=== PATIENT | male | born 1970 | race Caucasian/White ===

== ENCOUNTER 2017-06-18 17:05 | Emergency (ER) | payer OTHER ==
[2017-06-18 17:08] VITALS: TEMP 36.4
[2017-06-18] MEDS ORDERED: IBUPROFEN 600 MG TAB PO STA (17:16)
[2017-06-18] MEDS ORDERED: ACETAMINOPHEN 500 MG TAB PO STA (17:16)
[2017-06-18] MEDS ORDERED: LISI-789 PO (17:34)
[2017-06-18] MEDS ORDERED: CHOL20007 PO (17:34)
[2017-06-18] MEDS ORDERED: BRIM0.2S OPL (17:34)
[2017-06-18] MEDS ORDERED: TIMO0.5S2 OPR (17:34)
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
[2017-06-18 18:52] VITALS: BP 134/92; PULSE 67; O2SAT 96
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
== END 2017-06-18 18:53 | disposition home or self-care (01) ==
LOC: C.EDB 17:07 → C.EDD 18:53
DX: S69.91XA Unspecified injury of right wrist, hand and finger(s), initial encounter (principal); V43.62XA Car passenger injured in collision with other type car in traffic accident, initial encounter; F79 Unspecified intellectual disabilities; Z79.899 Other long term (current) drug therapy

== ENCOUNTER 2021-10-28 23:22 | Observation (INO) ==
[2021-10-28] MEDS ORDERED: cefTRIAXone SODIUM 1,000 MG/50 ML BAG IV STA (23:31)
[2021-10-28] MEDS ORDERED: PIPERACILL/TAZOBAC CONSULT ACTIVE PRN (23:47)
[2021-10-28] MEDS ORDERED: PIPERACILLIN/TAZOBACTAM 4.5 GM/120 ML BAG IV ONE (23:47)
--- NOTE | 2021-10-28 23:47 | Emergency Department Note ---
Impression & Plan Gram-negative bacteremia ED Provider Note NAME: MIGUEL SALINAS AGE: 51 SEX: M : 1970 ARRIVES VIA: Walk-In INFORMANT: Patient, the patient's sister ED PROVIDER(S): Cabrera Vasquez DO CHIEF COMPLAINT: Positive blood culture HPI: The patient is a 51-year-old male who presented to the emergency department for an evaluation. The patient was seen in our facility yesterday. He had what was thought to be a syncopal episode. When he presented to the emergency department last evening his blood pressure was low. He had a work-up for sepsis. He was found to have an elevated lactic acid. He was treated with IV fluids in the emergency department. He was given a dose of IV antibiotics. On reevaluation his condition was significantly improved and he was felt to be stable for discharge to home. The patient had a blood culture returned today that had gram-negative growth. The charge nurse called the patient at home. We spoke to his sister and instructed them to come back to the emergency department for further evaluation. His sister does give most of the history as the patient has a history of developmental delay. The patient has been eating and drinking normally today. He has had no fever. He has had no syncope or low blood pressure. They did hold his blood pressure medication today at our request last evening. According to his sister he has had routine colonoscopies. He has no history of colon mass. He has had no dysuria or frequency. He denies having any back pain. ROS: See above HPI for pertinent positives & negatives. A total of 10 systems reviewed and were otherwise negative. PAST MEDICAL HISTORY: See Below PAST SURGICAL HISTORY: See Below FAMILY HISTORY: See Below SOCIAL HISTORY: See Below HOME MEDICATIONS: See Below ALLERGIES: See Below VITALS: See Below PHYSICAL EXAMINATION: GENERAL: The patient is awake and alert. He is looking around the room and appears to be comfortable. EYES: The conjunctivae are clear. The pupils are round and reactive. EARS, NOSE, MOUTH AND THROAT: The nose is without any evidence of any deformity. Mucous membranes are dry. NECK: The neck is nontender and supple. RESPIRATORY: Normal respiratory effort is noted there is no evidence of wheezing rhonchi or rales CARDIOVASCULAR: Regular rate and rhythm noted there no murmurs rubs or gallops normal S1 normal S2. GASTROINTESTINAL: The abdomen is soft and mildly distended. There is no tenderness guarding rigidity. MUSCULOSKELETAL/EXTREMITIES: There is no evidence of gross deformity full range of motion is noted in the hips and shoulders. SKIN: There is no obvious evidence of any rash. There are no petechiae, pallor or cyanosis noted. NEUROLOGIC: Patient is awake and recognizes his family member. Strength is symmetric. MEDICAL DECISION MAKING: The patient is a 51-year-old male who presented to emergency department for an evaluation. The patient was in our facility yesterday. At that time he was hypotensive but was treated with IV fluids. He did look much better on reevaluation and was able to be discharged home. The patient returns emergency department this evening after he received a phone call from the charge nurse because of a positive blood culture for gram-negative bacteria. The patient was treated with IV antibiotics in emergency department this evening. He does appear to look quite well. He was not febrile or hypotensive. Further laboratory and radiographic studies were obtained to try to determine the source of the gram-negative bacteremia. The case was discussed with the on-call [facility]ist. They have agreed to evaluate the patient in the emergency department for further management and disposition. Triage Nursing notes reviewed. Prior medical records reviewed Vital Signs: reviewed and remarkable for no significant abnormalities Differential diagnosis: Sepsis, UTI, pneumonia, metabolic, electrolyte abnormalities, cardiac sources, intracerebral event, toxicologic, neurologic, as well as other pathologies. ER treatment provided: See below Diagnostics interpreted by me: ECG: EKG was obtained in the emergency department. My interpretation is normal sinus rhythm at 83 bpm. There is no ectopy. There is no acute ST segment abnormalities noted. This was compared to a tracing from October 27, 2021. No changes were noted. Cardiac Monitoring: An order was placed for continuous cardiac monitoring. The monitor shows a rate of 71 bpm with sinus rhythm. Laboratory studies: As stated above and show below. Imaging studies: See below Consultation(s): The case was discussed with Dr. Barker who is on-call for the [facility]ist. Past Med/Surg History Medical History Cognitive impairment Constipation Depression Fatty liver Frequency of urination Glaucoma Hearing loss Hyperlipidemia Hypertension Lichen simplex chronicus Moderate mental subnormality Prediabetes Proteinuria Speech impediment Vitamin D deficiency Surgical History History of tooth extraction all but 4 teeth removed Hx of colonoscopy (~2018) Family History Father Prostate cancer Diabetes Hypertension Cancer Heart disease Mother Breast cancer Heart disease Brother Colorectal cancer Other No family history of adverse response to anesthesia Denies family history of Ovarian cancer Myocardial infarction Social History Smoking Status: Never smoker Second Hand Exposure: No; Hx Alcohol Use: No Hx Substance Use: No Preferred Language: Luxembourgish Communication Ability: Impaired Visual Impairment: Limited Hearing Ability: Normal Cerner Analyst Required: No Beliefs That Will Affect Care: None marital status: Single Current Living Situation: Other Current Living Situation Comment: Lives with caregiver current occupational status: employed 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 How many Children do You have: 0 Feels Safe at Home: Yes Childhood Exposure to Second-Hand Smoke: No caffeine: No during the past year weight has: remained stable Dental Care, Regularly: Yes Physical Activity Frequency: 1-2 Times per Week Seatbelt Use: always Sunscreen Use: Yes Assistive Devices: Glasses Allergies Allergies Allergy/AdvReac Type Severity Reaction Status Date / Time atorvastatin Allergy Mild itching Verified 10/28/21 23:52 Home Meds Home Medications Medication Instructions Recorded Confirmed timolol maleate 0.5 % eye drops 1 drp OP BID ml 07/10/19 10/28/21 brimonidine 0.2 %-timolol 0.5 % 1 drp OPL BID 10/27/21 10/28/21 eye drops (Combigan) Previous Rx's Medication Instructions Recorded psyllium husk (with sugar) 3.4 2 tbsp PO QAM #1368 g 12/20/20 gram/12 gram oral powder (Metamucil (with sugar)) docusate sodium 100 mg capsule 100 mg PO BID #60 cap 06/25/21 (Colace) cholecalciferol (vitamin D3) 50 2,000 unit PO QAM #90 cap 10/26/21 mcg (2,000 unit) capsule lisinopril 5 mg tablet 5 mg PO QAM #90 tab 10/26/21 omega-3 fatty acids 1,000 mg 1,000 mg PO QAM #90 cap 10/26/21 capsule pravastatin 40 mg tablet 60 mg PO HS #90 tab 10/26/21 quetiapine 50 mg tablet 50 mg PO HS #90 tab 10/26/21 sertraline 50 mg tablet (Zoloft) 50 mg PO DAILY #90 tab 10/26/21 tamsulosin 0.4 mg capsule (Flomax) 0.4 mg PO DAILY #90 cap 10/26/21 Results & Data (ED) Vital Signs Vital Signs - 24 hr 10/28/21 23:27 10/28/21 23:47 10/29/21 00:44 Temperature 36.8 C Temperature Source Temporal Artery Scan Pulse Rate 84 71 Pulse Rate [Left] Pulse Rhythm Regular Pulse Rhythm [Left] Pulse Strength [Left] Respiratory Rate 20 16 Respiratory Effort / Characteristics Non-Labored Blood Pressure 133/83 Blood Pressure Mean 99 Pulse Oximetry 98 100 Oxygen Delivery Method Room Air Room Air Sepsis Recent Fever Within 48 Hours No Sepsis New/Unexplained Change in Mental Status N/A Sepsis Action Taken by Nursing No Action Required 10/29/21 00:45 10/29/21 00:46 Temperature Temperature Source Pulse Rate Pulse Rate [Left] 71 71 Pulse Rhythm Pulse Rhythm [Left] Regular Regular Pulse Strength [Left] Normal Respiratory Rate 16 Respiratory Effort / Characteristics Non-Labored Blood Pressure Blood Pressure Mean Pulse Oximetry 100 Oxygen Delivery Method Room Air Sepsis Recent Fever Within 48 Hours Sepsis New/Unexplained Change in Mental Status Sepsis Action Taken by Group Home Medications Current Medication List: was personally reviewed by me Laboratory Data Attestation: I reviewed the patient's lab results. Result diagrams: 10/28/21 23:45 10/28/21 23:45 Lab Results 10/28/21 10/28/21 10/28/21 Range/Units 23:45 23:45 23:45 WBC 8.03 (4.8-10.8) K/uL RBC 4.46 L (4.7-6.1) M/uL Hgb 13.1 L (14.0-18.0) g/dL Hct 39.4 L (42-52) % MCV 88.3 (80-100) fL MCH 29.4 (25-34) pg MCHC 33.2 (32-36) g/dL RDW Std Deviation 50.0 H (36.4-46.3) fL RDW Coeff of Varun 15.4 H (11.5-14.5) % Plt Count 208 (130-400) K/uL MPV 10.0 (7.4-10.4) fL Immature Gran % (Auto) 0.6 % Neut % (Auto) 77.6 % Lymph % (Auto) 12.7 % Mckenzie % (Auto) 7.0 % Eos % (Auto) 1.7 % Baso % (Auto) 0.4 % Neut # (Auto) 6.23 (1.4-6.5) K/uL Lymph # (Auto) 1.02 L (1.2-3.4) K/uL Mckenzie # (Auto) 0.56 (0.11-0.59) K/uL Eos # (Auto) 0.14 (0-0.5) K/uL Baso # (Auto) 0.03 (0-0.2) K/uL Immature Gran # (Auto) 0.05 H (0.00-0.02) K/uL PT 9.8 (9.0-12.0) Seconds INR 1.0 (0.9-1.1) APTT 25.7 (21.0-31.0) Seconds PTT Ratio 1.0 Sodium 136 (136-145) mmol/L Potassium 3.8 (3.5-5.1) mmol/L Chloride 102 (98-107) mmol/L Carbon Dioxide 27 (21-32) mmol/L Anion Gap 7 (3-11) BUN 11 (6-23) mg/dl Creatinine 0.77 (0.6-1.4) mg/dl Est Cr Clr Drug Dosing 89.7 ml/min Est GFR ( Amer) 120.1 ml/min Est GFR (Non-Af Amer) 103.6 ml/min BUN/Creatinine Ratio 14.3 (10-20) Glucose 118 H (70-99(Fasting)) mg/dl Lactate (0.4-2.0) mmol/L Calcium 9.2 (8.5-10.1) mg/dl Magnesium 1.9 (1.7-2.4) mg/dl Total Bilirubin 0.5 (0.2-1.0) mg/dl AST 36 (13-39) U/L ALT 29 (7-52) U/L Alkaline Phosphatase 87 (34-104) U/L Troponin I < 0.03 (0-0.04) ng/ml Total Protein 7.2 (6.0-8.3) gm/dl Albumin 4.2 (3.4-5.0) gm/dl Globulin 3.0 (2.5-4.0) gm/dl Albumin/Globulin Ratio 1.4 (0.9-2) Procalcitonin (0-0.5) ng/ml 10/28/21 10/28/21 Range/Units 23:45 23:45 WBC (4.8-10.8) K/uL RBC (4.7-6.1) M/uL Hgb (14.0-18.0) g/dL Hct (42-52) % MCV (80-100) fL MCH (25-34) pg MCHC (32-36) g/dL RDW Std Deviation (36.4-46.3) fL RDW Coeff of Varun (11.5-14.5) % Plt Count (130-400) K/uL MPV (7.4-10.4) fL Immature Gran % (Auto) % Neut % (Auto) % Lymph % (Auto) % Mckenzie % (Auto) % Eos % (Auto) % Baso % (Auto) % Neut # (Auto) (1.4-6.5) K/uL Lymph # (Auto) (1.2-3.4) K/uL Mckenzie # (Auto) (0.11-0.59) K/uL Eos # (Auto) (0-0.5) K/uL Baso # (Auto) (0-0.2) K/uL Immature Gran # (Auto) (0.00-0.02) K/uL PT (9.0-12.0) Seconds INR (0.9-1.1) APTT (21.0-31.0) Seconds PTT Ratio Sodium (136-145) mmol/L Potassium (3.5-5.1) mmol/L Chloride (98-107) mmol/L Carbon Dioxide (21-32) mmol/L Anion Gap (3-11) BUN (6-23) mg/dl Creatinine (0.6-1.4) mg/dl Est Cr Clr Drug Dosing ml/min Est GFR ( Amer) ml/min Est GFR (Non-Af Amer) ml/min BUN/Creatinine Ratio (10-20) Glucose (70-99(Fasting)) mg/dl Lactate 1.0 (0.4-2.0) mmol/L Calcium (8.5-10.1) mg/dl Magnesium (1.7-2.4) mg/dl Total Bilirubin (0.2-1.0) mg/dl AST (13-39) U/L ALT (7-52) U/L Alkaline Phosphatase (34-104) U/L Troponin I (0-0.04) ng/ml Total Protein (6.0-8.3) gm/dl Albumin (3.4-5.0) gm/dl Globulin (2.5-4.0) gm/dl Albumin/Globulin Ratio (0.9-2) Procalcitonin < 0.05 (0-0.5) ng/ml Administered Medications Discontinued Medications Piperacillin Sod/Tazobactam Sod (Zosyn) 4.5 gm in 120 mls @ 240 mls/hr IV NOW ONE Stop: 10/29/21 00:16 Last Admin: 10/29/21 00:53 Dose: 240 mls/hr Documented by: [id number] Ioversol (Optiray 320 100ml) 95 ml IV ONCE ONE Stop: 10/29/21 00:22 Last Admin: 10/29/21 00:21 Dose: 95 ml Documented by: [id number] Imaging Data Attestation: I personally reviewed and interpreted this imaging study as follows: My Impression: 1 view chest x-ray was obtained in the emergency department. My interpretation is poor expiratory effort. Bibasilar fullness was noted. There is no free air. This was compared to chest x-ray from October 27, 2021. The bibasilar changes are new compared to the previous chest x-ray. Discharge Plan Visit Data Chief Complaint: Abnormal Labs/Diagnostic Testing Stated Complaint: TOLD TO COME BACK, BACTERIA IN BLOOD ED Provider: Cabrera Vasquez Discharge Problem: Gram-negative bacteremia Patient Disposition: Being Evaluated by Hospitalist Forms Stand Alone Forms: My [facility] Prescriptions Prescriptions: No Action docusate sodium [Colace] 100 mg capsule 100 mg PO BID Qty: 60 RF: 5 cholecalciferol (vitamin D3) 50 mcg (2,000 unit) capsule 2,000 unit PO QAM Qty: 90 RF: 1 lisinopril 5 mg tablet 5 mg PO QAM Qty: 90 RF: 1 omega-3 fatty acids 1,000 mg capsule 1,000 mg PO QAM Qty: 90 RF: 1 pravastatin 40 mg tablet 60 mg PO HS Qty: 90 RF: 1 quetiapine 50 mg tablet 50 mg PO HS Qty: 90 RF: 1 sertraline [Zoloft] 50 mg tablet 50 mg PO DAILY Qty: 90 RF: 1 tamsulosin [Flomax] 0.4 mg capsule 0.4 mg PO DAILY Qty: 90 RF: 1 Metamucil (with sugar) 3.4 gram/12 gram powder 2 tbsp PO QAM Qty: 1368 RF: 5 timolol maleate 0.5 % drops 1 drp OP BID RF: 0 Combigan 0.2-0.5 % drops 1 drp OPL BID RF: 0 Referrals Referrals: Ronna Zendejas DO [Primary Care Provider] -
[2021-10-28 23:54] LABS: Basophils # (auto) 0.03 K/uL (0-0.2); Basophils % (auto) 0.4 %; Eosinophils # (auto) 0.14 K/uL (0-0.5); Eosinophils % (auto) 1.7 %; Hematocrit (blood only) 39.4 % (42-52); Hemoglobin 13.1 g/dL (14.0-18.0); Immature Granulocytes # (auto) 0.05 K/uL (0.00-0.02); Immature Granulocytes % (auto) 0.6 %; Lymphocytes # (auto) 1.02 K/uL (1.2-3.4); Lymphocytes % (auto) 12.7 %; Mean Corpuscular Hemoglobin 29.4 pg (25-34); Mean Corpuscular Hgb Conc 33.2 g/dL (32-36); Mean Corpuscular Volume 88.3 fL (80-100); Monocytes # (auto) 0.56 K/uL (0.11-0.59); Neutrophils # (auto) 6.23 K/uL (1.4-6.5); Neutrophils % (auto) 77.6 %; Platelet Count 208 K/uL (130-400); RDW Coefficient of Variation 15.4 % (11.5-14.5); Red Blood Count 4.46 M/uL (4.7-6.1); White Blood Count 8.03 K/uL (4.8-10.8)
[2021-10-29 00:05] LABS: Partial Thromboplastin Time 25.7 Seconds (21.0-31.0); Prothrombin Time 9.8 Seconds (9.0-12.0)
[2021-10-29 00:16] LABS: Alanine Aminotransferase 29 U/L (7-52); Albumin Globulin Ratio 1.4 (0.9-2); Albumin Level 4.2 gm/dl (3.4-5.0); Alkaline Phosphatase 87 U/L (34-104); Anion Gap 7 (3-11); Aspartate Aminotransferase 36 U/L (13-39); BUN Creatinine Ratio 14.3 (10-20); Bilirubin,Total 0.5 mg/dl (0.2-1.0); Blood Urea Nitrogen 11 mg/dl (6-23); Calcium 9.2 mg/dl (8.5-10.1); Carbon Dioxide 27 mmol/L (21-32); Chloride 102 mmol/L (98-107); Creatinine Clr Calc Pharmacy 89.7 ml/min; Est GFR (African American) 120.1 ml/min; Est GFR (Non-African American) 103.6 ml/min; Glucose 118 mg/dl (70-99(Fasting)); Magnesium 1.9 mg/dl (1.7-2.4); Potassium 3.8 mmol/L (3.5-5.1); Sodium 136 mmol/L (136-145); Total Protein 7.2 gm/dl (6.0-8.3)
[2021-10-29] MEDS ORDERED: OPTIRAY 320 100ml IV ONE (00:21)
[2021-10-29 00:33] LABS: Troponin I < 0.03 ng/ml (0-0.04)
--- NOTE | 2021-10-29 02:28 | History & Physical Report ---
Date of Service October 29, 2021 Assessment & Plan (1) Gram-negative bacteremia: Plan: 51yo male seen in the ER yesterday for syncope, acute hypotension which resolved with 2L IVF returns due to positive blood cultures (10/27/21 - 1 cultures positive for GNR in aerobic bottle). Patient is afebrile, HD stable, NAD. No complaints No acute findings to suggest infection on physical exam CT Abdomen read is pending -Admit to medical -Repeat cultures sent -Zosyn 3.375gm IV q 8 for now, transition to oral antibiotics pending speciation/sensitivity -UA ordered -Tylenol and Zofran PRN (2) Depression: Plan: Chronic -Continue Sertraline -Continue Seroquel qHS (3) Cognitive impairment: Plan: Noted (4) Hypertension: Plan: Patient with hypotension yesterday which resolved with IVF -Hold Lisinopril -Continue to monitor (5) Hyperlipidemia: Plan: Chronic -Continue Pravastatin 60mg po qHS (6) Speech impediment: Plan: Noted. Patient is able to answer questions Plan: F/E/N - Heplock. Electrolytes WNL. Regular diet as tolerated - easy to chew. Continue home bowel regimen Ppx - Low risk for DVT Code - Full Dispo - Admit to medical History of Present Illness Chief Complaint: Positive blood cultures Primary Care Provider: DO Cole Allen is a 51yo male with cognitive impairment/developmental delay who was seen in the ER last night after a syncopal episode. Patient with no focal complaints at the time. He states he has been eating well.He was found to be hypotensive as low as 71/51. His lactic acid level was initially high at 3.5 (after repeated attempts at blood draw - patient is a very difficult stick). He was administered 2L NSS with normalization of his blood pressure and Lactic acid to 1.3. He also received Zosyn. Patient was discharged home with instruction to hold his home Lisinopril and followup with his PCP. Blood cultures drawn yesterday resulted POSITIVE - One of two cultures drawn from 10/27/21 at 22:43 positive for Gram Negative Bacilli in Aerobic bottle. Patient was contacted by the ER and returned with his sister this evening. He has no complaints. States he is feeling well. He denies chest pain, shortness of breath, abdominal pain, nausea, vomiting, diarrhea or constipation. ER Course: Labs and images as below Zosyn 4.5gm Allergies Allergy/AdvReac Type Severity Reaction Status Date / Time atorvastatin Allergy Mild itching Verified 10/28/21 23:52 Home Medications Medication Instructions Recorded Confirmed Type timolol maleate 0.5 % eye drops 1 drp OP BID ml 07/10/19 10/28/21 History psyllium husk (with sugar) 3.4 2 tbsp PO QAM #1368 g 12/20/20 10/28/21 Rx gram/12 gram oral powder (Metamucil (with sugar)) docusate sodium 100 mg capsule 100 mg PO BID #60 cap 06/25/21 10/28/21 Rx (Colace) cholecalciferol (vitamin D3) 50 2,000 unit PO QAM #90 cap 10/26/21 10/28/21 Rx mcg (2,000 unit) capsule lisinopril 5 mg tablet 5 mg PO QAM #90 tab 10/26/21 10/28/21 Rx omega-3 fatty acids 1,000 mg 1,000 mg PO QAM #90 cap 10/26/21 10/28/21 Rx capsule pravastatin 40 mg tablet 60 mg PO HS #90 tab 10/26/21 10/28/21 Rx quetiapine 50 mg tablet 50 mg PO HS #90 tab 10/26/21 10/28/21 Rx sertraline 50 mg tablet (Zoloft) 50 mg PO DAILY #90 tab 10/26/21 10/28/21 Rx tamsulosin 0.4 mg capsule (Flomax) 0.4 mg PO DAILY #90 cap 10/26/21 10/28/21 Rx brimonidine 0.2 %-timolol 0.5 % 1 drp OPL BID 10/27/21 10/28/21 History eye drops (Combigan) Past Med/Surg History Medical History Cognitive impairment Constipation Depression Fatty liver Frequency of urination Glaucoma Hearing loss Hyperlipidemia Hypertension Lichen simplex chronicus Moderate mental subnormality Prediabetes Proteinuria Speech impediment Vitamin D deficiency Surgical History History of tooth extraction all but 4 teeth removed Hx of colonoscopy (~2018) Family History Father Prostate cancer Diabetes Hypertension Cancer Heart disease Mother Breast cancer Heart disease Brother Colorectal cancer Other No family history of adverse response to anesthesia Denies family history of Ovarian cancer Myocardial infarction Social History Smoking Status: Never smoker Second Hand Exposure: No; Hx Alcohol Use: No Hx Substance Use: No Preferred Language: Ukrainian Communication Ability: Impaired Visual Impairment: Limited Hearing Ability: Normal 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 Beliefs That Will Affect Care: None marital status: Single Current Living Situation: Other Current Living Situation Comment: Lives with caregiver current occupational status: employed 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 How many Children do You have: 0 Feels Safe at Home: Yes Childhood Exposure to Second-Hand Smoke: No caffeine: No during the past year weight has: remained stable Dental Care, Regularly: Yes Physical Activity Frequency: 1-2 Times per Week Seatbelt Use: always Sunscreen Use: Yes Assistive Devices: Glasses Review of Systems Review of Systems: All systems reviewed & are unremarkable except as noted in HPI & below Physical Exam Physical Exam: General: patient resting comfortably, NAD, non-toxic in appearance, AA&O x 4 Skin: warm, dry, intact, no rashes or lesions HEENT: NC/AT, PERRL, EOMI, anicteric sclera, conjunctiva without injection, external ear normal to inspection and nontender, nares patent, moist mucus membranes, edentulous, no oropharyngeal lesions, neck supple, trachea midline, no LAD, no thyromegaly, no JVD Heart: +S1/S2, regular, no m/r/g Lungs: equal air entry bilaterally, no rales/rhonchi/wheezes Abd: +BS, soft, NT/ND, no masses/organomegaly/ascites, no RUQ tenderness, negative Tello's sign, no suprapubic tenderness, no CVA tenderness Ext: warm, 2+ pulses in UE/LE bilaterally, no clubbing/cyanosis or edema Neuro: nonfocal, patient AA&O x 4, speech intact, no facial droop, moving all extremities on command with equal strength 5/5 Results & Data Results & Data ([facility]) Vital Signs (Past 12 Hours) Vital Signs Temp Pulse Pulse Resp BP BP Pulse Ox 10/29/21 01:49 81 16 119/81 97 10/29/21 01:22 67 16 97 10/29/21 00:46 71 10/29/21 00:45 71 16 100 10/29/21 00:44 71 16 100 10/28/21 23:27 36.8 C 84 20 133/83 98 Laboratory Results Laboratory Results WBC 8.03 K/uL (4.8-10.8) 10/28/21 23:45 RBC 4.46 M/uL (4.7-6.1) L 10/28/21 23:45 Hgb 13.1 g/dL (14.0-18.0) L 10/28/21 23:45 Hct 39.4 % (42-52) L 10/28/21 23:45 MCV 88.3 fL (80-100) 10/28/21 23:45 MCH 29.4 pg (25-34) 10/28/21 23:45 MCHC 33.2 g/dL (32-36) 10/28/21 23:45 RDW Std Deviation 50.0 fL (36.4-46.3) H 10/28/21 23:45 RDW Coeff of Varun 15.4 % (11.5-14.5) H 10/28/21 23:45 Plt Count 208 K/uL (130-400) 10/28/21 23:45 MPV 10.0 fL (7.4-10.4) 10/28/21 23:45 Immature Gran % (Auto) 0.6 % 10/28/21 23:45 Neut % (Auto) 77.6 % 10/28/21 23:45 Lymph % (Auto) 12.7 % 10/28/21 23:45 [place] % (Auto) 7.0 % 10/28/21 23:45 Eos % (Auto) 1.7 % 10/28/21 23:45 Baso % (Auto) 0.4 % 10/28/21 23:45 Neut # (Auto) 6.23 K/uL (1.4-6.5) 10/28/21 23:45 Lymph # (Auto) 1.02 K/uL (1.2-3.4) L 10/28/21 23:45 [place] # (Auto) 0.56 K/uL (0.11-0.59) 10/28/21 23:45 Eos # (Auto) 0.14 K/uL (0-0.5) 10/28/21 23:45 Baso # (Auto) 0.03 K/uL (0-0.2) 10/28/21 23:45 Immature Gran # (Auto) 0.05 K/uL (0.00-0.02) H 10/28/21 23:45 PT 9.8 Seconds (9.0-12.0) 10/28/21 23:45 INR 1.0 (0.9-1.1) 10/28/21 23:45 APTT 25.7 Seconds (21.0-31.0) 10/28/21 23:45 PTT Ratio 1.0 10/28/21 23:45 Sodium 136 mmol/L (136-145) 10/28/21 23:45 Potassium 3.8 mmol/L (3.5-5.1) 10/28/21 23:45 Chloride 102 mmol/L (98-107) 10/28/21 23:45 Carbon Dioxide 27 mmol/L (21-32) 10/28/21 23:45 Anion Gap 7 (3-11) 10/28/21 23:45 BUN 11 mg/dl (6-23) 10/28/21 23:45 Creatinine 0.77 mg/dl (0.6-1.4) 10/28/21 23:45 Est Cr Clr Drug Dosing 89.7 ml/min 10/28/21 23:45 Est GFR ( Amer) 120.1 ml/min 10/28/21 23:45 Est GFR (Non-Af Amer) 103.6 ml/min 10/28/21 23:45 BUN/Creatinine Ratio 14.3 (10-20) 10/28/21 23:45 Glucose 118 mg/dl (70-99(Fasting)) H 10/28/21 23:45 Lactate 1.0 mmol/L (0.4-2.0) 10/28/21 23:45 Calcium 9.2 mg/dl (8.5-10.1) 10/28/21 23:45 Magnesium 1.9 mg/dl (1.7-2.4) 01/16/22 23:45 Total Bilirubin 0.5 mg/dl (0.2-1.0) 10/28/21 23:45 AST 36 U/L (13-39) 10/28/21 23:45 ALT 29 U/L (7-52) 10/28/21 23:45 Alkaline Phosphatase 87 U/L (34-104) 10/28/21 23:45 Troponin I < 0.03 ng/ml (0-0.04) 10/28/21 23:45 Total Protein 7.2 gm/dl (6.0-8.3) 10/28/21 23:45 Albumin 4.2 gm/dl (3.4-5.0) 10/28/21 23:45 Globulin 3.0 gm/dl (2.5-4.0) 10/28/21 23:45 Albumin/Globulin Ratio 1.4 (0.9-2) 10/28/21 23:45 Procalcitonin < 0.05 ng/ml (0-0.5) 10/28/21 23:[address] Abdomen and Pelvis - Performed, awaiting read CXR by my interpretation wtih poor inspiratory effort, appears to have some airspace opacities mostly in RLL Code Status & VTE Plan VTE Prophylaxis Plan VTE Prophylaxis will be ordered: No PG Care Time/CCT Total # of Minutes Spent Total Time Spent with Patient: Total time spent is greater than 50% in coordination of care (as documented) at patient's floor/unit and/or counseling patient: Coding Level of Care Code 26846 Initial Inpt Care Lvl 2 Diagnoses Gram-negative bacteremia R78.81 Depression F32.9 Cognitive impairment R41.89 Hypertension I10 Hyperlipidemia E78.5 Speech impediment R47.9
[2021-10-29] MEDS ORDERED: ONDANSETRON INJ 2 MG/ML 2 ML VIAL IV PRN (02:46)
[2021-10-29] MEDS ORDERED: ACETAMINOPHEN 325 MG TAB PO PRN (02:46)
[2021-10-29] MEDS ORDERED: PIPERACILL/TAZOBAC CONSULT ACTIVE PRN (02:46)
--- NOTE | 2021-10-29 07:23 | CT Scan Report ---
ABDOMEN AND PELVIS CT WITH IV CONTRAST CT DOSE: 446.94 mGy.cm HISTORY: Generalized abdominal pain. sepsis TECHNIQUE: Multiaxial CT images of the abdomen and pelvis were performed following the use of intrave nous contrast. A dose lowering technique was utilized adhering to the principles of ALARA. COMPARISON STUDY: Abdomen and pelvis CT 02/20/2021. FINDINGS: Schmorl's node at the super endplate of L1 remains unchanged. Focal indentation at the ante rior cortex of S3 consistent with acute to subacute sacral fracture. This likely accounts for the pre sacral edema which is new from the prior study. Patchy bibasilar airspace opacities within the lungs. This favors a mild viral pneumonia. No pneumoperitoneum. No pneumatosis. The liver, gallbladder, richards creas, spleen, adrenal glands, and right kidney are unremarkable. There are 2 hypodense lesions withi n the left kidney, unchanged. These likely represent cysts. The largest measures 2 cm. No retroperito tierney lymphadenopathy. Normal caliber abdominal aorta. The main portal vein is patent. Mild motion art ifact. Large fat-containing right inguinal hernia. This also contains a portion of the right anterior bladder dome. No definite bladder wall thickening. The prostate gland is normal in size. No bowel wa ll thickening or obstruction. Is not identified with certainty. There are no inflammatory changes within the right lower quadrant. IMPRESSION: 1. Mild presacral edema. There is a focal indentation of the anterior cortex of the S3 vertebral body consistent with an acute to subacute sacral fracture. This likely accounts for the presacral edema. 2. Large right inguinal hernia is again noted. This contains fat and a small portion of the right ant erior bladder. 3. No bowel wall thickening or obstruction. ACT 112: Negative or not required by law. Electronically signed by: Clinton Rai M.D. 10/29/2021 7:22 AM
--- NOTE | 2021-10-29 07:35 | XRay Report ---
XR chest 1V portable CLINICAL HISTORY: SEPSIS TECHNIQUE: Single frontal radiograph of the chest was obtained. Comparison: Comparison is made to chest one view 10/27/2021 FINDINGS: No lines and tubes are seen. The cardiomediastinal silhouette is stable. There is prominence and ceph alization of the vasculature with Lauren B lines seen. Mild bibasilar opacities are increased in prom inence from prior exam. No evidence of pleural effusion or pneumothorax. IMPRESSION: Moderate pulmonary edema. This represents an increase in prior exam. Increased bibasilar opacities ma y reflect atelectasis, pneumonia, and/or aspiration. ACT 112: Negative or not required by law. Electronically signed by: Dong Parker M.D. 10/29/2021 7:34 AM
[2021-10-29] MEDS: COMBIGAN~ORDER AWAITING ACTION SCH ×3 (08:37→23:00)
[2021-10-29] MEDS: PIPERACILLIN/TAZOBACTAM 3.375 GM in DEXTROSE 5% 100 ML IV SCH ×3 (08:38→22:14)
--- NOTE | 2021-10-29 08:49 | Electrocardiogram Report ---
Test Reason : Blood Pressure : / mmHG Vent. Rate : 083 BPM Atrial Rate : 083 BPM P-R Int : 140 ms QRS Dur : 086 ms QT Int : 360 ms P-R-T Axes : 042 015 030 degrees QTc Int : 423 ms Poor data quality, interpretation may be adversely affected Normal sinus rhythm Normal ECG When compared with ECG of 27-OCT-2021 19:51, No significant change was found Confirmed by Mayo Graf ([id number]) on 10/29/2021 8:49:43 AM Referred By: REFERRED SELF Confirmed By:Mayo Graf
[2021-10-29] MEDS ORDERED: Flu Vaccine (Fluarix) 0.5mL SYR (Standard Dose) IM ONE (09:00)
[2021-10-29] MEDS: SERTRALINE HCL 50 MG TABLET PO SCH (09:10)
[2021-10-29] MEDS: TAMSULOSIN HCL 0.4 MG CAP PO SCH (09:10)
[2021-10-29] MEDS: DOCUSATE SODIUM 100 MG CAP PO SCH ×2 (09:10→20:35)
[2021-10-29] MEDS: TIMOLOL MALEATE 0.5% OP SOLN 5 ML BTL OP SCH ×2 (09:10→20:36)
--- NOTE | 2021-10-29 12:14 | Hospitalist Progress Note ---
Date of Service October 29, 2021 Assessment & Plan (1) Gram-negative bacteremia: Plan: Unclear source of infection and only 1/2 bottles positive for GNB, awaiting full results. At baseline No acute findings to suggest infection on physical exam CT Abdomen/pelvis with focal indentation of the anterior cortex of the S3 vertebral body consistent with an acute to subacute sacral fracture - very low suspicion of vertebral infection given no overlying source for infection. -Repeat cultures sent -Zosyn 3.375gm IV q 8 for now, transition to oral antibiotics pending speciation/sensitivity, will consider ID consult for duration given unknown source -Repeat UA unremarkable -Tylenol and Zofran PRN (2) Depression: Plan: Chronic -Continue Sertraline -Continue Seroquel qHS (3) Cognitive impairment: Plan: Noted (4) Hypertension: Plan: Patient with hypotension yesterday which resolved with IVF -Continue to hold Lisinopril -Continue to monitor (5) Hyperlipidemia: Plan: Chronic -Continue Pravastatin 60mg po qHS (6) Speech impediment: Plan: Noted. Patient is able to answer questions Plan: F/E/N - Heplock. Electrolytes WNL. Regular diet as tolerated - easy to chew. Continue home bowel regimen Ppx - Low risk for DVT Code - Full Dispo - Continue on med/surg Admission and Anticipated Discharge Date Admission Date: October 29, 2021 Subjective No current concerns or question from patient or his caregiver at bedside. Patient at his baseline. No suspected uncontrolled source of infection. GNB in 1/2 bottles, awaiting full identification. ESR 33. Review of Systems Review of Systems: All systems reviewed & are unremarkable except as noted in HPI & below Physical Exam Constitutional: no acute distress Eyes: + anicteric sclerae; normal pupil size ENMT: external ear and nose normal, oropharynx normal Respiratory: normal respiratory effort, lungs clear to auscultation Cardiovascular: RRR, no murmur, no edema Gastrointestinal (Abdomen): Percussion/Palpation: abdomen soft; abdomen nontender Musculoskeletal: no cyanosis or clubbing, extremities motor strength 5/5 Skin: Trauma: + abrasion (mild on sacrum, no ulceration of cellulitis) Neurologic: moves all extremities and awake; not confused Psychiatric: Orientation: alert Results & Data Results & Data ([facility]) Vital Signs (Past 12 Hours) Vital Signs Temp Pulse Pulse Resp BP BP Pulse Ox 10/29/21 08:35 36.4 C L 71 18 124/53 L 92 10/29/21 04:02 64 18 118/91 93 10/29/21 04:00 64 21 94 10/29/21 02:43 70 16 96 10/29/21 02:00 87 26 H 98 10/29/21 01:49 81 16 119/81 97 10/29/21 01:48 82 26 H 119/91 98 10/29/21 01:22 67 16 97 10/29/21 00:46 71 10/29/21 00:45 71 16 100 10/29/21 00:44 71 16 100 10/29/21 00:20 71 24 96 PG Care Time/CCT Total # of Minutes Spent Total Time Spent with Patient: Total time spent is greater than 50% in coordination of care (as documented) at patient's floor/unit and/or counseling patient: Coding Level of Care Code None Diagnoses Gram-negative bacteremia R78.81 Depression F32.9 Cognitive impairment R41.89 Hypertension I10 Hyperlipidemia E78.5 Speech impediment R47.9
[2021-10-29 13:23] LABS: Appearance Urine Clear (Clear); Bacteria Urine Automated Negative (Negative); Bilirubin Urine Negative (Negative); Blood Urine 1+ (Negative); Cast Urine Automated 0 /lpf (0-5); Color Urine Yellow; Epithelial Cell Urine Auto 0-5 /lpf (0-5); Glucose Urine UA Negative (Negative); Ketones Urine Negative (Negative); Leukocyte Esterase Urine Negative (Negative); Nitrite Urine Negative (Negative); RBC Urine Automated 0-4 /hpf (0-4); Specific Gravity Urine 1.018 (1.000-1.030); Urobilinogen Urine Negative (Negative); WBC Urine Automated 0 /hpf (0-5); pH Urine 7.5 (4.5-7.5)
[2021-10-29 13:24] LABS: Protein Urine 1+ (Negative)
[2021-10-29] MEDS ORDERED: QUEtiapine FUMARATE 25 MG TABLET PO SCH (21:00)
[2021-10-29] MEDS ORDERED: PRAVASTATIN SOD 20 MG TAB PO SCH (21:00)
[2021-10-30] MEDS: PIPERACILLIN/TAZOBACTAM 3.375 GM in DEXTROSE 5% 100 ML IV SCH ×2 (05:34→14:28)
[2021-10-30] MEDS: COMBIGAN~ORDER AWAITING ACTION SCH ×2 (07:04→14:56)
[2021-10-30 07:10] LABS: Basophils # (auto) 0.02 K/uL (0-0.2); Basophils % (auto) 0.4 %; Eosinophils # (auto) 0.11 K/uL (0-0.5); Hematocrit (blood only) 38.3 % (42-52); Hemoglobin 12.7 g/dL (14.0-18.0); Immature Granulocytes # (auto) 0.04 K/uL (0.00-0.02); Immature Granulocytes % (auto) 0.7 %; Lymphocytes # (auto) 1.24 K/uL (1.2-3.4); Lymphocytes % (auto) 22.1 %; Mean Corpuscular Hemoglobin 29.1 pg (25-34); Mean Corpuscular Hgb Conc 33.2 g/dL (32-36); Mean Corpuscular Volume 87.8 fL (80-100); Mean Platelet Volume 10.1 fL (7.4-10.4); Monocytes # (auto) 0.76 K/uL (0.11-0.59); Monocytes % (auto) 13.5 %; Neutrophils # (auto) 3.45 K/uL (1.4-6.5); Neutrophils % (auto) 61.3 %; Platelet Count 197 K/uL (130-400); RDW Coefficient of Variation 15.3 % (11.5-14.5); RDW Standard Deviation 49.6 fL (36.4-46.3); Red Blood Count 4.36 M/uL (4.7-6.1); White Blood Count 5.62 K/uL (4.8-10.8)
[2021-10-30 07:35] LABS: BUN Creatinine Ratio 13.3 (10-20); Creatinine Clr Calc Pharmacy 92.2 ml/min; Est GFR (African American) 121.4 ml/min; Est GFR (Non-African American) 104.7 ml/min; Potassium 3.5 mmol/L (3.5-5.1)
[2021-10-30] MEDS: SERTRALINE HCL 50 MG TABLET PO SCH (08:12)
[2021-10-30] MEDS: TIMOLOL MALEATE 0.5% OP SOLN 5 ML BTL OP SCH (08:12)
[2021-10-30] MEDS: TAMSULOSIN HCL 0.4 MG CAP PO SCH (08:12)
[2021-10-30] MEDS: DOCUSATE SODIUM 100 MG CAP PO SCH (08:12)
--- NOTE | 2021-10-30 15:39 | Discharge Summary ---
Date of Service October 30, 2021 Admission HPI Per Admitting Provider Cole Rosario is a 51yo male with cognitive impairment/developmental delay who was seen in the ER last night after a syncopal episode. Patient with no focal complaints at the time. He states he has been eating well.He was found to be hypotensive as low as 71/51. His lactic acid level was initially high at 3.5 (after repeated attempts at blood draw - patient is a very difficult stick). He was administered 2L NSS with normalization of his blood pressure and Lactic acid to 1.3. He also received Zosyn. Patient was discharged home with instruction to hold his home Lisinopril and followup with his PCP. Blood cultures drawn yesterday resulted POSITIVE - One of two cultures drawn from 10/27/21 at 22:43 positive for Gram Negative Bacilli in Aerobic bottle. Patient was contacted by the ER and returned with his sister this evening. He has no complaints. States he is feeling well. He denies chest pain, shortness of breath, abdominal pain, nausea, vomiting, diarrhea or constipation. ER Course: Labs and images as below Zosyn 4.5gm Principal Diagnosis Bacteremia - Pantoea (Entero) agglomerans Sacral fracture Discharge Exam Constitutional no acute distress Eyes + anicteric sclerae; normal pupil size ENMT external ear and nose normal, oropharynx normal Respiratory normal respiratory effort, lungs clear to auscultation Cardiovascular RRR, no murmur, no edema Gastrointestinal (Abdomen) Percussion/Palpation: abdomen soft; abdomen nontender Musculoskeletal no cyanosis or clubbing, extremities motor strength 5/5 Skin Trauma: + abrasion (mild on sacrum, no ulceration of cellulitis) Neurologic moves all extremities and awake; not confused Psychiatric Orientation: alert Discharge Data Allergies Allergy/AdvReac Type Severity Reaction Status Date / Time atorvastatin Allergy Mild itching Verified 10/28/21 23:52 Consultations 10/29/21 01:00 ED Decision to Admit Stat 10/30/21 07:33 Consult Infectious Diseases Routine Ordered Studies 10/28/21 23:30 CT abd pelvis IV con only Urgent IMPRESSION: 1. Mild presacral edema. There is a focal indentation of the anterior cortex of the S3 vertebral body consistent with an acute to subacute sacral fracture. This likely accounts for the presacral edema. 2. Large right inguinal hernia is again noted. This contains fat and a small portion of the right anterior bladder. 3. No bowel wall thickening or obstruction. Hospital Course (1) Gram-negative bacteremia: Cole Hernandez is a 51 year old male admitted to [facility] from October 29 to 2021 due to a positive blood culture. Blood culture was initially taken after a syncopal episode while on the toilet. Subsequent blood culture grew Pantoea (Entero) agglomerans. On consultation with infectious disease recommend switching antibiotics to ciprofloxacin for a further 6 days. No source of infection was identified. Recommend he follows up with his PCP in 1-2 weeks. Lisinopril was discontinued due to his initial syncopal episode. Recommend following up with his primary care doctor to decide whether this needs to be reintroduced. (2) Depression: (3) Cognitive impairment: (4) Hypertension: (5) Hyperlipidemia: (6) Speech impediment: Total Time Total Time Spent Total Time Spent (In Minutes): 35 Discharge Plan Discharge Items Patient Disposition: Home - Self-Care Reason For Visit: BACTEREMIA Discharge Diagnosis: Bacteremia - Pantoea (Entero) agglomerans Sacral fracture Activity: Resume your previous activity Non-emergency contact: Primary Care Provider Call non-emergency contact if: you have any medication questions and your symptoms worsen Follow-up/Referrals: Ronna Zendejas DO [Primary Care Provider] - 11/13/21 9:20 am Diet: Regular Diet Texture: Easy to Chew Addtl Attending Provider Instructions: You were admitted to [facility] from October 29 to 2021 due to positive blood culture. Blood culture was initially taken after a syncopal episode while on the toilet. Subsequent blood culture grew Pantoea (Entero) agglomerans. On consultation with infectious disease recommend switching antibiotics to ciprofloxacin for a further 6 days. No source of infection was identified. Please follow-up with your primary care doctor in the next 1 to 2 weeks. Lisinopril was discontinued due to your initial syncopal episode. Recommend following up with your primary care doctor as above to decide whether this needs to be reintroduced. Pending Studies at Discharge: Yes (Follow-up blood cultures negative at 24 hours) Stand-Alone Forms: My [facility] [employer], Smoking Cessation Medications and DC Order Prescriptions: Continued docusate sodium [Colace] 100 mg capsule 100 mg PO BID Qty: 60 RF: 5 cholecalciferol (vitamin D3) 50 mcg (2,000 unit) capsule 2,000 unit PO QAM Qty: 90 RF: 1 omega-3 fatty acids 1,000 mg capsule 1,000 mg PO QAM Qty: 90 RF: 1 pravastatin 40 mg tablet 60 mg PO HS Qty: 90 RF: 1 quetiapine 50 mg tablet 50 mg PO HS Qty: 90 RF: 1 sertraline [Zoloft] 50 mg tablet 50 mg PO DAILY Qty: 90 RF: 1 tamsulosin [Flomax] 0.4 mg capsule 0.4 mg PO DAILY Qty: 90 RF: 1 Metamucil (with sugar) 3.4 gram/12 gram powder 2 tbsp PO QAM Qty: 1368 RF: 5 timolol maleate 0.5 % drops 1 drp OP BID RF: 0 Combigan 0.2-0.5 % drops 1 drp OPL BID RF: 0 Discontinued lisinopril 5 mg tablet 5 mg PO QAM Qty: 90 RF: 1 Discharge Orders: Discharge Order (Routine); Ordered 10/30/21 Ordered By: Mumtaz Oviedo/Other Patient Handouts: Ciprofloxacin Oral Tablet 500 mg Admission Data Admit Date/Time: 10/29/21 01:14 Attending Provider: Mumtaz Chavez Admit Provider: Jenn Barker Primary Care Provider: Ronna Zendejas Other Providers: Jenn Barker ; Corey Mott ; Oliva Vásquez ; Tab Barker I. ; Joni Lopez II ; Adriana Pierre ; Cortes Suggs ; Slava Nagel Other Interventions: Discharge Summary Assessment (RN) Last Done: 10/30/21 16:04 Coding Level of Care Code D/C DAY MANAGEMENT >30 MINS Diagnoses Gram-negative bacteremia R78.81 Depression F32.9 Cognitive impairment R41.89 Hypertension I10 Hyperlipidemia E78.5 Speech impediment R47.9
== END 2021-10-30 17:30 | disposition home or self-care (01) ==
LOC: ED 23:22 → EDINP 10-29 01:14 → SUATTDRO 10-29 01:14 → INTOOBSV 10-29 01:14 → 3W 10-29 02:50

== ENCOUNTER 2022-03-29 09:05 | Inpatient (IN) ==
[2022-03-29] MEDS ORDERED: SODIUM CHLORIDE 0.9% 1000ML 1,000 ML IV ONE ×2 (09:23→11:53)
--- NOTE | 2022-03-29 09:34 | Emergency Department Note ---
Impression & Plan Altered mental status, Agitation, Acute dehydration, Elevated lactic acid level, CHF (congestive heart failure) ED Provider Note NAME: MIGUEL SALINAS AGE: 51 SEX: M : 1970 ARRIVES VIA: Walk-In INFORMANT: [friends] ED PROVIDER(S): [Hawk Duran MD] CHIEF COMPLAINT: Dehydration, altered HISTORY OF PRESENT ILLNESS: The patient is a 51-year-old male who since yesterday has not been himself. He is pacing, he seems uncomfortable. He has been trying to urinate but does not seem to be able to. He has not had much to eat or drink. No vomiting, no diarrhea, no fever. No complaints of chest pain. He is here with a friend/worker. The patient does have some mental disability, he is currently nonverbal and can provide no further history. No further history obtainable given the mental state. REVIEW OF SYSTEMS: Unobtainable given the mental state PMHx/PSHx: See Below SOCIAL HISTORY: See Below. PHYSICAL EXAM: GENERAL: Patient is in mild distress, pacing in the room. Seems agitated. HEENT: No acute trauma, normocephalic atraumatic, mucous membranes moist, no nasal congestion, no scleral icterus. NECK: No stridor, no adenopathy, no meningismus, trachea is midline. LUNGS: Clear to auscultation bilaterally, no wheeze, no rhonchi, breath sounds equal. HEART: Without murmurs gallops or rubs, regular rate and rhythm. ABDOMEN: Soft, patient's abdomen does seem distended, mildly diffusely tender. No peritonitis EXTREMITIES: No cyanosis, mild bilateral pedal edema, full range of motion of all the joints without pain or difficulty, no signs for acute trauma. NEUROLOGIC: Awake and alert, pacing in the room, no focal motor deficits, n onverbal. SKIN: No rash, no jaundice, no diaphoresis. DIFFERENTIAL DIAGNOSIS: Urinary retention, hydronephrosis, UTI, bowel obstruction, dehydration, electrolyte imbalance, anemia, infection, intracranial bleeding, medication reaction, viral illness, among others EMERGENCY DEPARTMENT COURSE/PROCEDURES: ECG: Indication was confusion and tachycardia. The ECG shows a normal sinus rhythm with some sinus arrhythmia. The rate is 98. There is no ST elevation, no PVCs. The QTc is 462. Continuous Cardiac Monitoring: An order was placed for continuous cardiac monitoring. The monitor shows a rate of 120 with sinus tachycardia. Critical Care Note: I have personally spent 49 minutes of critical care time in the direct management of this patient. This includes bedside care, int erpretation of diagnostic studies, and testing, discussion with consultants, patient, and family members, and other required patient management activities. This 49 minutes is in excess of all separately billable procedures. MEDICAL DECISION MAKING: There is no leukocytosis. A mild anemia was seen with a hemoglobin of 12.6. The patient carries a history of anemia. There was a normal platelet count. Renal panel testing shows a slightly low CO2 and a mild anion gap. No renal failure. Lactic acid level was elevated at over 4 however, the nursing staff was concerned about this being a spurious value as they did have a difficult time obtaining the initial lactic acid value. Alk phos was slightly elevated, the remaining liver enzymes were unremarkable. ECG shows a sinus rhythm, no obvious ischemia. Cardiac enzyme testing x1 is not consistent with acute cardiac injury. Patient appeared to be in a euthyroid state. Urinalysis showed some blood, no signs of infection. COVID test returned negative. Chest x-ray shows what appears to be fluid overload/CHF. Brain CT shows no acute bleed or mass-effect. CT of the abdomen pelvis does not show any evidence for urinary or bowel obstruction, no infectious process by CT imaging. On exam, the patient was quite agitated and pacing in the room. He appeared uncomfortable. The patient became uncooperative here in the ED, he tried to flee the ED. He did require some restraint. He received IM Haldol and IM Ativan. For a very brief time he required extremity restraint. Once the Haldol and Ativan took effect, the extremity restraints were removed. Patient received IV saline, 1 L. I was hesitant to give any more fluids with the chest x-ray findings of CHF. Despite the high lactic acid value, patient was not a candidate for 30 cc/kg of IV saline. The patient received IV Zosyn as antibiotic coverage. A Garcia catheter was placed, no significant urinary retention noted with catheter placement Given the agitation, given the change in his mental state, given his dehydration by history, given the chest x-ray findings of CHF, I do think a hospital stay for further work-up is warranted. I spoke with the patient's sister, she did consent to the work-up here in the ED and for hospitalization. I spoke with case management, the on-call hospitalist has been consulted. The patient does seem much more comfortable since treatment here in the ED. Past Med/Surg History Medical History Cognitive impairment Constipation Depression Fatty liver Frequency of urination Glaucoma Hearing loss Hyperlipidemia Hypertension Lichen simplex chronicus Moderate mental subnormality Prediabetes Proteinuria Speech impediment Vitamin D deficiency Surgical History History of tooth extraction all but 4 teeth removed Hx of colonoscopy (~2018) Family History Father Prostate cancer Diabetes Hypertension Cancer Heart disease Mother Breast cancer Heart disease Brother Colorectal cancer Other No family history of adverse response to anesthesia Denies family history of Ovarian cancer Myocardial infarction Social History Smoking Status: Never smoker Second Hand Exposure: No; Hx Alcohol Use: No Hx Substance Use: No Preferred Language: Luxembourgish Communication Ability: Impaired Visual Impairment: Limited Hearing Ability: Normal 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 Beliefs That Will Affect Care: None marital status: Single Current Living Situation: Other Current Living Situation Comment: [place] current occupational status: employed 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 How many Children do You have: 0 Feels Safe at Home: Yes Childhood Exposure to Second-Hand Smoke: No caffeine: No during the past year weight has: remained stable Dental Care, Regularly: Yes Physical Activity Frequency: 1-2 Times per Week Seatbelt Use: always Sunscreen Use: Yes Assistive Devices: Glasses Allergies Allergies Allergy/AdvReac Type Severity Reaction Status Date / Time atorvastatin Allergy Intermediate ITCHY ALL Verified 03/29/22 15:01 OVER Home Meds Home Medications Medication Instructions Recorded Confirmed timolol maleate 0.5 % eye drops 1 drp OP BID ml 07/10/19 03/29/22 brimonidine 0.2 %-timolol 0.5 % 1 drp OPL BID 10/27/21 03/29/22 eye drops (Combigan) Previous Rx's Medication Instructions Recorded sertraline 50 mg tablet (Zoloft) 50 mg PO DAILY #90 tab 01/14/22 tamsulosin 0.4 mg capsule (Flomax) 0.4 mg PO DAILY #90 cap 10/26/21 pravastatin 20 mg tablet 20 mg PO HS #90 tab 01/21/22 pravastatin 40 mg tablet 40 mg PO HS #90 tab 01/21/22 betamethasone dipropionate 0.05 % 1 applic TOPICAL BID PRN #30 g 02/18/22 topical ointment cholecalciferol (vitamin D3) 50 2,000 unit PO QAM #90 cap 02/18/22 mcg (2,000 unit) capsule omega-3 fatty acids 1,000 mg 1,000 mg PO QAM #90 cap 02/18/22 capsule Results & Data (ED) Vital Signs Vital Signs - 24 hr 03/29/22 09:07 03/29/22 11:24 03/29/22 11:27 Temperature 36.4 C L Temperature Source Temporal Artery Scan Pulse Rate 107 H 150 H Pulse Rate [Apical] 109 H Pulse Rate from SpO2 Sensor 148 H Pulse Rhythm Regular Pulse Rhythm [Apical] Regular Pulse Strength Normal Pulse Strength [Apical] Normal Respiratory Rate 20 24 24 Respiratory Effort / Characteristics Non-Labored Spontaneous Non-Labored Spontaneous Respiratory Depth Normal Normal Respiratory Pattern Regular Blood Pressure 138/89 Blood Pressure [Right Arm] 142/69 H Blood Pressure Mean 105 Blood Pressure Mean [Right Arm] 93 Blood Pressure Position Sitting Blood Pressure Position [Right Arm] Semi-fowlers Pulse Oximetry 99 96 94 Oxygen Delivery Method Room Air Room Air Room Air Oxygen Flow Rate Sepsis Recent Fever Within 48 Hours No Sepsis New/Unexplained Change in Mental Status No Sepsis Action Taken by Nursing No Action Required 03/29/22 11:29 03/29/22 11:30 03/29/22 11:42 Temperature Temperature Source Pulse Rate 120 H 108 H 94 H Pulse Rate [Apical] Pulse Rate from SpO2 Sensor 105 H 91 H Pulse Rhythm Regular Pulse Rhythm [Apical] Pulse Strength Pulse Strength [Apical] Respiratory Rate 22 26 H 21 Respiratory Effort / Characteristics Respiratory Depth Respiratory Pattern Blood Pressure 139/76 Blood Pressure [Right Arm] Blood Pressure Mean 97 Blood Pressure Mean [Right Arm] Blood Pressure Position Blood Pressure Position [Right Arm] Pulse Oximetry 97 96 93 Oxygen Delivery Method Room Air Room Air Room Air Oxygen Flow Rate Sepsis Recent Fever Within 48 Hours Sepsis New/Unexplained Change in Mental Status Sepsis Action Taken by Nursing 03/29/22 11:45 03/29/22 12:26 03/29/22 12:30 Temperature Temperature Source Pulse Rate 116 H 96 H Pulse Rate [Apical] Pulse Rate from SpO2 Sensor 116 H 105 H Pulse Rhythm Pulse Rhythm [Apical] Pulse Strength Pulse Strength [Apical] Respiratory Rate 29 H 31 H Respiratory Effort / Characteristics Respiratory Depth Respiratory Pattern Blood Pressure 132/86 142/73 H Blood Pressure [Right Arm] Blood Pressure Mean 101 96 Blood Pressure Mean [Right Arm] Blood Pressure Position Blood Pressure Position [Right Arm] Pulse Oximetry 84 L 89 L Oxygen Delivery Method Room Air Nasal Cannula Oxygen Flow Rate 2 Sepsis Recent Fever Within 48 Hours Sepsis New/Unexplained Change in Mental Status Sepsis Action Taken by Nursing 03/29/22 12:45 03/29/22 13:00 03/29/22 13:15 Temperature Temperature Source Pulse Rate 98 H 98 H 104 H Pulse Rate [Apical] Pulse Rate from SpO2 Sensor 95 H 94 H 101 H Pulse Rhythm Pulse Rhythm [Apical] Pulse Strength Pulse Strength [Apical] Respiratory Rate 26 H 24 34 H Respiratory Effort / Characteristics Respiratory Depth Respiratory Pattern Blood Pressure 121/76 Blood Pressure [Right Arm] Blood Pressure Mean 91 Blood Pressure Mean [Right Arm] Blood Pressure Position Blood Pressure Position [Right Arm] Pulse Oximetry 95 94 91 Oxygen Delivery Method Nasal Cannula Nasal Cannula Nasal Cannula Oxygen Flow Rate 2 2 2 Sepsis Recent Fever Within 48 Hours Sepsis New/Unexplained Change in Mental Status Sepsis Action Taken by Nursing 03/29/22 13:30 03/29/22 15:00 03/29/22 15:38 Temperature Temperature Source Pulse Rate 110 H Pulse Rate [Apical] 60 Pulse Rate from SpO2 Sensor 112 H Pulse Rhythm Pulse Rhythm [Apical] Pulse Strength Pulse Strength [Apical] Respiratory Rate 16 Respiratory Effort / Characteristics Respiratory Depth Respiratory Pattern Blood Pressure 105/68 Blood Pressure [Right Arm] 85/49 L 101/57 L Blood Pressure Mean 80 Blood Pressure Mean [Right Arm] 61 71 Blood Pressure Position Blood Pressure Position [Right Arm] Pulse Oximetry 97 94 Oxygen Delivery Method Nasal Cannula Nasal Cannula Oxygen Flow Rate 2 2 Sepsis Recent Fever Within 48 Hours Sepsis New/Unexplained Change in Mental Status Sepsis Action Taken by Detention Medications Current Medication List: was personally reviewed by me Laboratory Data Attestation: I reviewed the patient's lab results. Result diagrams: 03/29/22 11:11 03/29/22 11:11 Lab Results 0603/29/22 03/29/22 Range/Units 11:11 11:11 11:11 WBC 9.39 (4.8-10.8) K/uL RBC 4.43 L (4.7-6.1) M/uL Hgb 12.6 L (14.0-18.0) g/dL Hct 38.0 L (42-52) % MCV 85.8 (80-100) fL MCH 28.4 (25-34) pg MCHC 33.2 (32-36) g/dL RDW Std Deviation 46.1 (36.4-46.3) fL RDW Coeff of Varun 14.8 H (11.5-14.5) % Plt Count 271 (130-400) K/uL MPV 10.2 (7.4-10.4) fL Immature Gran % (Auto) 1.4 % Neut % (Auto) 75.4 % Lymph % (Auto) 15.8 % Burke % (Auto) 7.1 % Eos % (Auto) 0.1 % Baso % (Auto) 0.2 % Neut # (Auto) 7.08 H (1.4-6.5) K/uL Lymph # (Auto) 1.48 (1.2-3.4) K/uL Burke # (Auto) 0.67 H (0.11-0.59) K/uL Eos # (Auto) 0.01 (0-0.5) K/uL Baso # (Auto) 0.02 (0-0.2) K/uL Immature Gran # (Auto) 0.13 H (0.00-0.02) K/uL VBG pH (7.36-7.41) VBG pCO2 (38-50) mmHg VBG pO2 mmHg VBG HCO3 mmol/L VBG O2 Saturation % VBG Base Excess mEq/L Barometric Pressure mm/Hg Sodium 137 (136-145) mmol/L Potassium 3.5 (3.5-5.1) mmol/L Chloride 103 (98-107) mmol/L Carbon Dioxide 18 L (21-32) mmol/L Anion Gap 16 H (3-11) BUN 15 (6-23) mg/dl Creatinine 0.74 (0.6-1.4) mg/dl Est Cr Clr Drug Dosing 100.4 ml/min Est GFR ( Amer) 122.1 ml/min Est GFR (Non-Af Amer) 105.3 ml/min BUN/Creatinine Ratio 20.3 H (10-20) Glucose 150 H (70-99(Fasting)) mg/dl Lactate 4.5 H* (0.4-2.0) mmol/L Calcium 9.2 (8.5-10.1) mg/dl Magnesium 1.9 (1.7-2.4) mg/dl Total Bilirubin 0.5 (0.2-1.0) mg/dl AST 36 (13-39) U/L ALT 23 (7-52) U/L Alkaline Phosphatase 107 H (34-104) U/L Troponin I High Sens 6.1 (0-20) pg/ml C-Reactive Protein (0-0.5) mg/dl B-Natriuretic Peptide (0-100) pg/ml Total Protein 7.2 (6.0-8.3) gm/dl Albumin 4.3 (3.4-5.0) gm/dl Globulin 2.9 (2.5-4.0) gm/dl Albumin/Globulin Ratio 1.5 (0.9-2) TSH (0.300-4.500) uIu/ml Urine Color Urine Appearance (Clear) Urine pH (4.5-7.5) Ur Specific Fence (1.000-1.030) Urine Protein (Negative) Urine Glucose (UA) (Negative) Urine Ketones (Negative) Urine Blood (Negative) Urine Nitrite (Negative) Urine Bilirubin (Negative) Urine Urobilinogen (Negative) Ur Leukocyte Esterase (Negative) Urine WBC (Auto) (0-5) /hpf Urine RBC (Auto) (0-4) /hpf U Hyaline Cast (Auto) (0-5) /lpf U Epithel Cells (Auto) (0-5) /lpf Urine Bacteria (Auto) (Negative) Ur Renal Epithelial Cell Urine Mucus (None Prsent) Urine Opiates Screen (Neg) Ur Methadone, Qual (Neg) Urine Barbiturates (Neg) Ur Phencyclidine (PCP) (Neg) U Amphetamin/Meth Scrn (Neg) MDMA (Ecstasy) Screen (Neg) U Benzodiazepines Scrn (Neg) Ur Cocaine Metabolite (Neg) U Marijuana (THC) Screen (Neg) SARS-CoV-2, RNA, NAAT (NEGATIVE) 03/29/22 03/29/22 03/29/22 Range/Units 11:11 11:24 11:24 WBC (4.8-10.8) K/uL RBC (4.7-6.1) M/uL Hgb (14.0-18.0) g/dL Hct (42-52) % MCV (80-100) fL MCH (25-34) pg MCHC (32-36) g/dL RDW Std Deviation (36.4-46.3) fL RDW Coeff of Varun (11.5-14.5) % Plt Count (130-400) K/uL MPV (7.4-10.4) fL Immature Gran % (Auto) % Neut % (Auto) % Lymph % (Auto) % Burke % (Auto) % Eos % (Auto) % Baso % (Auto) % Neut # (Auto) (1.4-6.5) K/uL Lymph # (Auto) (1.2-3.4) K/uL Burke # (Auto) (0.11-0.59) K/uL Eos # (Auto) (0-0.5) K/uL Baso # (Auto) (0-0.2) K/uL Immature Gran # (Auto) (0.00-0.02) K/uL VBG pH (7.36-7.41) VBG pCO2 (38-50) mmHg VBG pO2 mmHg VBG HCO3 mmol/L VBG O2 Saturation % VBG Base Excess mEq/L Barometric Pressure mm/Hg Sodium (136-145) mmol/L Potassium (3.5-5.1) mmol/L Chloride (98-107) mmol/L Carbon Dioxide (21-32) mmol/L Anion Gap (3-11) BUN (6-23) mg/dl Creatinine (0.6-1.4) mg/dl Est Cr Clr Drug Dosing ml/min Est GFR ( Amer) ml/min Est GFR (Non-Af Amer) ml/min BUN/Creatinine Ratio (10-20) Glucose (70-99(Fasting)) mg/dl Lactate (0.4-2.0) mmol/L Calcium (8.5-10.1) mg/dl Magnesium (1.7-2.4) mg/dl Total Bilirubin (0.2-1.0) mg/dl AST (13-39) U/L ALT (7-52) U/L Alkaline Phosphatase (34-104) U/L Troponin I High Sens (0-20) pg/ml C-Reactive Protein (0-0.5) mg/dl B-Natriuretic Peptide (0-100) pg/ml Total Protein (6.0-8.3) gm/dl Albumin (3.4-5.0) gm/dl Globulin (2.5-4.0) gm/dl Albumin/Globulin Ratio (0.9-2) TSH 2.752 (0.300-4.500) uIu/ml Urine Color Yellow Urine Appearance Clear (Clear) Urine pH 5.0 (4.5-7.5) Ur Specific Fence 1.028 (1.000-1.030) Urine Protein 3+ H (Negative) Urine Glucose (UA) Negative (Negative) Urine Ketones Trace H (Negative) Urine Blood 3+ H (Negative) Urine Nitrite Negative (Negative) Urine Bilirubin Negative (Negative) Urine Urobilinogen Negative (Negative) Ur Leukocyte Esterase Negative (Negative) Urine WBC (Auto) 1-5 (0-5) /hpf Urine RBC (Auto) 0-4 (0-4) /hpf U Hyaline Cast (Auto) 1-5 (0-5) /lpf U Epithel Cells (Auto) >30 H (0-5) /lpf Urine Bacteria (Auto) 1+ H (Negative) Ur Renal Epithelial Cell Not Reportable Urine Mucus Present A (None Prsent) Urine Opiates Screen Neg (Neg) Ur Methadone, Qual Neg (Neg) Urine Barbiturates Neg (Neg) Ur Phencyclidine (PCP) Neg (Neg) U Amphetamin/Meth Scrn Neg (Neg) MDMA (Ecstasy) Screen Neg (Neg) U Benzodiazepines Scrn Neg (Neg) Ur Cocaine Metabolite Neg (Neg) U Marijuana (THC) Screen Neg (Neg) SARS-CoV-2, RNA, NAAT (NEGATIVE) 03/29/22 03/29/22 03/29/22 Range/Units 11:38 12:46 12:46 WBC (4.8-10.8) K/uL RBC (4.7-6.1) M/uL Hgb (14.0-18.0) g/dL Hct (42-52) % MCV (80-100) fL MCH (25-34) pg MCHC (32-36) g/dL RDW Std Deviation (36.4-46.3) fL RDW Coeff of Varun (11.5-14.5) % Plt Count (130-400) K/uL MPV (7.4-10.4) fL Immature Gran % (Auto) % Neut % (Auto) % Lymph % (Auto) % Burke % (Auto) % Eos % (Auto) % Baso % (Auto) % Neut # (Auto) (1.4-6.5) K/uL Lymph # (Auto) (1.2-3.4) K/uL Burke # (Auto) (0.11-0.59) K/uL Eos # (Auto) (0-0.5) K/uL Baso # (Auto) (0-0.2) K/uL Immature Gran # (Auto) (0.00-0.02) K/uL VBG pH (7.36-7.41) VBG pCO2 (38-50) mmHg VBG pO2 mmHg VBG HCO3 mmol/L VBG O2 Saturation % VBG Base Excess mEq/L Barometric Pressure mm/Hg Sodium (136-145) mmol/L Potassium (3.5-5.1) mmol/L Chloride (98-107) mmol/L Carbon Dioxide (21-32) mmol/L Anion Gap (3-11) BUN (6-23) mg/dl Creatinine (0.6-1.4) mg/dl Est Cr Clr Drug Dosing ml/min Est GFR ( Amer) ml/min Est GFR (Non-Af Amer) ml/min BUN/Creatinine Ratio (10-20) Glucose (70-99(Fasting)) mg/dl Lactate 1.2 (0.4-2.0) mmol/L Calcium (8.5-10.1) mg/dl Magnesium (1.7-2.4) mg/dl Total Bilirubin (0.2-1.0) mg/dl AST (13-39) U/L ALT (7-52) U/L Alkaline Phosphatase (34-104) U/L Troponin I High Sens (0-20) pg/ml C-Reactive Protein (0-0.5) mg/dl B-Natriuretic Peptide 21 (0-100) pg/ml Total Protein (6.0-8.3) gm/dl Albumin (3.4-5.0) gm/dl Globulin (2.5-4.0) gm/dl Albumin/Globulin Ratio (0.9-2) TSH (0.300-4.500) uIu/ml Urine Color Urine Appearance (Clear) Urine pH (4.5-7.5) Ur Specific Fence (1.000-1.030) Urine Protein (Negative) Urine Glucose (UA) (Negative) Urine Ketones (Negative) Urine Blood (Negative) Urine Nitrite (Negative) Urine Bilirubin (Negative) Urine Urobilinogen (Negative) Ur Leukocyte Esterase (Negative) Urine WBC (Auto) (0-5) /hpf Urine RBC (Auto) (0-4) /hpf U Hyaline Cast (Auto) (0-5) /lpf U Epithel Cells (Auto) (0-5) /lpf Urine Bacteria (Auto) (Negative) Ur Renal Epithelial Cell Urine Mucus (None Prsent) Urine Opiates Screen (Neg) Ur Methadone, Qual (Neg) Urine Barbiturates (Neg) Ur Phencyclidine (PCP) (Neg) U Amphetamin/Meth Scrn (Neg) MDMA (Ecstasy) Screen (Neg) U Benzodiazepines Scrn (Neg) Ur Cocaine Metabolite (Neg) U Marijuana (THC) Screen (Neg) SARS-CoV-2, RNA, NAAT NEGATIVE (NEGATIVE) 03/29/22 03/29/22 Range/Units 13:47 13:47 WBC (4.8-10.8) K/uL RBC (4.7-6.1) M/uL Hgb (14.0-18.0) g/dL Hct (42-52) % MCV (80-100) fL MCH (25-34) pg MCHC (32-36) g/dL RDW Std Deviation (36.4-46.3) fL RDW Coeff of Varun (11.5-14.5) % Plt Count (130-400) K/uL MPV (7.4-10.4) fL Immature Gran % (Auto) % Neut % (Auto) % Lymph % (Auto) % Burke % (Auto) % Eos % (Auto) % Baso % (Auto) % Neut # (Auto) (1.4-6.5) K/uL Lymph # (Auto) (1.2-3.4) K/uL Burke # (Auto) (0.11-0.59) K/uL Eos # (Auto) (0-0.5) K/uL Baso # (Auto) (0-0.2) K/uL Immature Gran # (Auto) (0.00-0.02) K/uL VBG pH 7.39 (7.36-7.41) VBG pCO2 38 (38-50) mmHg VBG pO2 58 mmHg VBG HCO3 22 mmol/L VBG O2 Saturation 88.0 % VBG Base Excess -2.6 mEq/L Barometric Pressure 726.4 mm/Hg Sodium (136-145) mmol/L Potassium (3.5-5.1) mmol/L Chloride (98-107) mmol/L Carbon Dioxide (21-32) mmol/L Anion Gap (3-11) BUN (6-23) mg/dl Creatinine (0.6-1.4) mg/dl Est Cr Clr Drug Dosing ml/min Est GFR ( Amer) ml/min Est GFR (Non-Af Amer) ml/min BUN/Creatinine Ratio (10-20) Glucose (70-99(Fasting)) mg/dl Lactate (0.4-2.0) mmol/L Calcium (8.5-10.1) mg/dl Magnesium (1.7-2.4) mg/dl Total Bilirubin (0.2-1.0) mg/dl AST (13-39) U/L ALT (7-52) U/L Alkaline Phosphatase (34-104) U/L Troponin I High Sens (0-20) pg/ml C-Reactive Protein 1.16 H (0-0.5) mg/dl B-Natriuretic Peptide (0-100) pg/ml Total Protein (6.0-8.3) gm/dl Albumin (3.4-5.0) gm/dl Globulin (2.5-4.0) gm/dl Albumin/Globulin Ratio (0.9-2) TSH (0.300-4.500) uIu/ml Urine Color Urine Appearance (Clear) Urine pH (4.5-7.5) Ur Specific Fence (1.000-1.030) Urine Protein (Negative) Urine Glucose (UA) (Negative) Urine Ketones (Negative) Urine Blood (Negative) Urine Nitrite (Negative) Urine Bilirubin (Negative) Urine Urobilinogen (Negative) Ur Leukocyte Esterase (Negative) Urine WBC (Auto) (0-5) /hpf Urine RBC (Auto) (0-4) /hpf U Hyaline Cast (Auto) (0-5) /lpf U Epithel Cells (Auto) (0-5) /lpf Urine Bacteria (Auto) (Negative) Ur Renal Epithelial Cell Urine Mucus (None Prsent) Urine Opiates Screen (Neg) Ur Methadone, Qual (Neg) Urine Barbiturates (Neg) Ur Phencyclidine (PCP) (Neg) U Amphetamin/Meth Scrn (Neg) MDMA (Ecstasy) Screen (Neg) U Benzodiazepines Scrn (Neg) Ur Cocaine Metabolite (Neg) U Marijuana (THC) Screen (Neg) SARS-CoV-2, RNA, NAAT (NEGATIVE) Administered Medications Discontinued Medications Haloperidol Lactate (Haloperidol Lactate 5 Mg/Ml 1 Ml Vial) 10 mg IM NOW STA Stop: 03/29/22 09:37 Last Admin: 03/29/22 09:42 Dose: 10 mg Documented by: [id number] Sodium Chloride (Nss 1000ml) 1,000 mls @ 999 mls/hr IV .Q1H1M ONE Stop: 03/29/22 10:23 Last Infusion: 03/29/22 13:42 Dose: 0 mls/hr Documented by: [id number] Admin: 03/29/22 12:00 Dose: 999 mls/hr Documented by: [id number] Piperacillin Sod/Tazobactam Sod (Zosyn) 4.5 gm in 120 mls @ 240 mls/hr IV NOW ONE Stop: 03/29/22 12:21 Last Infusion: 03/29/22 13:42 Dose: 0 mls/hr Documented by: [id number] Admin: 03/29/22 13:02 Dose: 240 mls/hr Documented by: [id number] Sodium Chloride (Nss 1000ml) 1,000 mls @ 999 mls/hr IV .Q1H1M ONE Stop: 03/29/22 12:53 Last Admin: 03/29/22 12:03 Dose: Not Given Documented by: [id number] Lorazepam (Lorazepam 2 Mg/1 Ml Vial) 2 mg IM NOW STA; Protocol Stop: 03/29/22 10:04 Last Admin: 03/29/22 10:25 Dose: 2 mg Documented by: [id number] Imaging Data Radiologist's Impression: Chest X-Ray 03/29/22 09:23 SINGLE VIEW CHEST CLINICAL HISTORY: Generalized weakness. FINDINGS: An AP, portable, supine chest radiograph is compared to study dated 10/28/2021. The examination is severely degraded by portable technique and patient rotation. The heart is enlarged. There is pulmonary vascular congestion. Airspace opacities likely represent pulmonary edema. No large pleural effusion or pneumothorax is seen. The skeletal structures appear osteopenic. The bony thorax is grossly intact. IMPRESSION: 1. Cardiomegaly with pulmonary vascular congestion. 2. Airspace opacities likely represent pulmonary edema. Correlate clinically for evidence of a superimposed infectious/inflammatory pneumonitis. Radiographic fol low-up to resolution is recommended ACT 112: Negative or not required by law. Electronically signed by: Hawk Taveras M.D. 03/29/2022 11:[address] 03/29/22 09:23 CT SCAN OF THE BRAIN WITHOUT IV CONTRAST CLINICAL HISTORY: Change in mental status. COMPARISON STUDY: CT of the brain dated 10/27/2021. TECHNIQUE: Unenhanced axial CT scan of the brain is performed from the vertex to the skull base. A dose lowering technique was utilized adhering to the principles of ALARA. The examination is degraded by inability to properly position the patient within the CT gantry. FINDINGS: Brain parenchyma: There is age-advanced involutional change noting mild subcortical and periventricular microangiopathic disease. There is no hemorrhage, mass effect, or evidence of acute territorial ischemia by CT c riteria. A chronic lacunar infarct is noted in the right periventricular white matter. Ramirez-white matter differentiation is preserved. No extra-axial fluid collection is seen. Ventricles, sulci, cisterns: Prominent secondary to involutional change. Intracranial vasculature: There is atherosclerotic calcification of the cavernous carotid and vertebral arteries. Calvarium: Unremarkable. Sinuses and mastoids: There is evidence of previous paranasal sinus surgery. The visualized paranasal sinuses are clear. The mastoid air cells are well pneumatized. Orbits: The bony orbits are grossly intact. IMPRESSION: There is no hemorrhage, mass effect, or evidence of acute territorial ischemia by CT criteria. ACT 112: Negative or not required by law. Electronically signed by: Hawk Taveras M.D. 03/29/2022 12:26 PM Abdomen/Pelvis CT 03/29/22 09:30 CT abd pelvis wo con CLINICAL HISTORY: poss obstruc, distended TECHNIQUE: Helical axial images of the abdomen and pelvis were obtained. Automated dose lowering techniques and/or adjustment according to patient size were utilized for this exam. This exam was performed without intravenous contrast. CT DOSE: 2198.72 mGy.cm COMPARISON: Comparison is made to CT abdomen pelvis 10/28/2021 FINDINGS: Lower chest: No acute abnormality Liver: Unremarkable. No focal lesions are seen. Gallbladder and biliary tree: No calcified gallstones. Normal caliber wall. No intra- or extrahepatic biliary ductal dilation. Pancreas: Unremarkable, no focal lesions. Spleen: Unremarkable. Adrenals: Unremarkable. Kidneys and ureters: Unremarkable. Bladder: Garcia catheter is seen. Reproductive organs: Unremarkable. Bowel: Unremarkable appearance of the bowel. The appendix is normal. Lymph nodes Retroperitoneal: Unremarkable. Mesenteric: Unremarkable. Pelvic: Unremarkable. Peritoneum: Normal. Vessels: Unremarkable. Abdominal wall: Right greater than left fat-containing inguinal hernias are noted. Bones: Degenerative changes in the visualized spine. IMPRESSION: No acute abnormalities, in particular no evidence of bowel obstruction. ACT 112: Negative or not required by law. Electronically signed by: Dong Parker M.D. 03/29/2022 12:30 PM Discharge Plan Visit Data Chief Complaint: Dehydration Stated Complaint: DEHYDRATED, DISORIENTED ED Provider: Hawk Duran Discharge Problem: Altered mental status, Agitation, Acute dehydration, Elevated lactic acid level, CHF (congestive heart failure) Patient Disposition: Admitted As Inpatient Condition: Fair Discharge Instructions Interventions: ED Discharge Assessment Last Done: 03/29/22 16:29 Forms Stand Alone Forms: My [employer] Prescriptions Prescriptions: No Action sertraline [Zoloft] 50 mg tablet 50 mg PO DAILY Qty: 90 RF: 1 tamsulosin [Flomax] 0.4 mg capsule 0.4 mg PO DAILY Qty: 90 RF: 1 pravastatin 40 mg tablet 40 mg PO HS Qty: 90 RF: 1 pravastatin 20 mg tablet 20 mg PO HS Qty: 90 RF: 1 cholecalciferol (vitamin D3) 50 mcg (2,000 unit) capsule 2,000 unit PO QAM Qty: 90 RF: 1 omega-3 fatty acids 1,000 mg capsule 1,000 mg PO QAM Qty: 90 RF: 1 betamethasone dipropionate 0.05 % ointment 1 applic topical BID PRN (Reason: skin irritation) Qty: 30 RF: 1 timolol maleate 0.5 % drops 1 drp OP BID RF: 0 brimonidine-timolol [Combigan] 0.2-0.5 % drops 1 drp OPL BID RF: 0 Referrals Referrals: Ronna Zendejas DO [Primary Care Provider] -
[2022-03-29] MEDS ORDERED: HALOPERIDOL LACTATE 5 MG/ML 1 ML VIAL IM STA (09:36)
[2022-03-29] MEDS ORDERED: LORazepam 2 MG/1 ML VIAL IM STA (10:03)
[2022-03-29 11:44] LABS: Basophils # (auto) 0.02 K/uL (0-0.2); Basophils % (auto) 0.2 %; Eosinophils # (auto) 0.01 K/uL (0-0.5); Eosinophils % (auto) 0.1 %; Hemoglobin 12.6 g/dL (14.0-18.0); Immature Granulocytes # (auto) 0.13 K/uL (0.00-0.02); Immature Granulocytes % (auto) 1.4 %; Lymphocytes # (auto) 1.48 K/uL (1.2-3.4); Lymphocytes % (auto) 15.8 %; Mean Corpuscular Hemoglobin 28.4 pg (25-34); Mean Corpuscular Hgb Conc 33.2 g/dL (32-36); Mean Corpuscular Volume 85.8 fL (80-100); Mean Platelet Volume 10.2 fL (7.4-10.4); Monocytes # (auto) 0.67 K/uL (0.11-0.59); Monocytes % (auto) 7.1 %; Neutrophils # (auto) 7.08 K/uL (1.4-6.5); Neutrophils % (auto) 75.4 %; Platelet Count 271 K/uL (130-400); RDW Coefficient of Variation 14.8 % (11.5-14.5); RDW Standard Deviation 46.1 fL (36.4-46.3); Red Blood Count 4.43 M/uL (4.7-6.1); White Blood Count 9.39 K/uL (4.8-10.8)
--- NOTE | 2022-03-29 11:45 | XRay Report ---
SINGLE VIEW CHEST CLINICAL HISTORY: Generalized weakness. FINDINGS: An AP, portable, supine chest radiograph is compared to study dated 10/28/2021. The examinat ion is severely degraded by portable technique and patient rotation. The heart is enlarged. There is pulmonary vascular congestion. Airspace opacities likely represent pulmonary edema. No large pleural effusion or pneumothorax is seen. The skeletal structures appear osteopenic. The bony thorax is arlene sly intact. IMPRESSION: 1. Cardiomegaly with pulmonary vascular congestion. 2. Airspace opacities likely represent pulmonary edema. Correlate clinically for evidence of a superi mposed infectious/inflammatory pneumonitis. Radiographic follow-up to resolution is recommended ACT 112: Negative or not required by law. Electronically signed by: Hawk Taveras M.D. 03/29/2022 11:43 AM
[2022-03-29] MEDS ORDERED: PIPERACILLIN/TAZOBACTAM 4.5 GM/120 ML BAG IV ONE (11:52)
[2022-03-29 12:06] LABS: Appearance Urine Clear (Clear); Bilirubin Urine Negative (Negative); Blood Urine 3+ (Negative); Color Urine Yellow; Epithelial Cell Urine Auto >30 /lpf (0-5); Glucose Urine UA Negative (Negative); Ketones Urine Trace (Negative); Leukocyte Esterase Urine Negative (Negative); Nitrite Urine Negative (Negative); Protein Urine 3+ (Negative); RBC Urine Automated 0-4 /hpf (0-4); Specific Gravity Urine 1.028 (1.000-1.030); Urobilinogen Urine Negative (Negative)
[2022-03-29 12:07] LABS: Albumin Globulin Ratio 1.5 (0.9-2); Albumin Level 4.3 gm/dl (3.4-5.0); BUN Creatinine Ratio 20.3 (10-20); Bilirubin,Total 0.5 mg/dl (0.2-1.0); Calcium 9.2 mg/dl (8.5-10.1); Creatinine Clr Calc Pharmacy 100.4 ml/min; Est GFR (African American) 122.1 ml/min; Est GFR (Non-African American) 105.3 ml/min; Globulin 2.9 gm/dl (2.5-4.0); Magnesium 1.9 mg/dl (1.7-2.4); Potassium 3.5 mmol/L (3.5-5.1); Total Protein 7.2 gm/dl (6.0-8.3)
[2022-03-29 12:11] LABS: Troponin I High Sensitivity 6.1 pg/ml (0-20)
--- NOTE | 2022-03-29 12:27 | CT Scan Report ---
CT SCAN OF THE BRAIN WITHOUT IV CONTRAST CLINICAL HISTORY: Change in mental status. COMPARISON STUDY: CT of the brain dated 10/27/2021. TECHNIQUE: Unenhanced axial CT scan of the brain is performed from the vertex to the skull base. A do se lowering technique was utilized adhering to the principles of ALARA. The examination is degraded b y inability to properly position the patient within the CT gantry. FINDINGS: Brain parenchyma: There is age-advanced involutional change noting mild subcortical and periventricul ar microangiopathic disease. There is no hemorrhage, mass effect, or evidence of acute territorial is chemia by CT criteria. A chronic lacunar infarct is noted in the right periventricular white matter. Ramirez-white matter differentiation is preserved. No extra-axial fluid collection is seen. Ventricles, sulci, cisterns: Prominent secondary to involutional change. Intracranial vasculature: There is atherosclerotic calcification of the cavernous carotid and vertebr al arteries. Calvarium: Unremarkable. Sinuses and mastoids: There is evidence of previous paranasal sinus surgery. The visualized paranasal sinuses are clear. The mastoid air cells are well pneumatized. Orbits: The bony orbits are grossly intact. IMPRESSION: There is no hemorrhage, mass effect, or evidence of acute territorial ischemia by CT jennifert cari. ACT 112: Negative or not required by law. Electronically signed by: Hawk Taveras M.D. 03/29/2022 12:26 PM
--- NOTE | 2022-03-29 12:32 | CT Scan Report ---
CT abd pelvis wo con CLINICAL HISTORY: poss obstruc, distended TECHNIQUE: Helical axial images of the abdomen and pelvis were obtained. Automated dose lowering tech niques and/or adjustment according to patient size were utilized for this exam. This exam was perfor med without intravenous contrast. CT DOSE: 2198.72 mGy.cm COMPARISON: Comparison is made to CT abdomen pelvis 10/28/2021 FINDINGS: Lower chest: No acute abnormality Liver: Unremarkable. No focal lesions are seen. Gallbladder and biliary tree: No calcified gallstones. Normal caliber wall. No intra- or extrahepatic biliary ductal dilation. Pancreas: Unremarkable, no focal lesions. Spleen: Unremarkable. Adrenals: Unremarkable. Kidneys and ureters: Unremarkable. Bladder: Garcia catheter is seen. Reproductive organs: Unremarkable. Bowel: Unremarkable appearance of the bowel. The appendix is normal. Lymph nodes Retroperitoneal: Unremarkable. Mesenteric: Unremarkable. Pelvic: Unremarkable. Peritoneum: Normal. Vessels: Unremarkable. Abdominal wall: Right greater than left fat-containing inguinal hernias are noted. Bones: Degenerative changes in the visualized spine. IMPRESSION: No acute abnormalities, in particular no evidence of bowel obstruction. ACT 112: Negative or not required by law. Electronically signed by: Dong Parker M.D. 03/29/2022 12:30 PM
[2022-03-29 13:10] LABS: Bacteria Urine Automated 1+ (Negative); Mucus Urine Present (None Prsent)
--- NOTE | 2022-03-29 13:39 | History & Physical Report ---
Date of Service March 29, 2022 Assessment & Plan (1) Sepsis: Plan: Patient presents with encephaloathy/agitation, tachycardic, tachypneic, elevated NLR - Blood cultures sent - UA with mucous ketones, blood protein, 1+ bacteria- culture pending - Zosyn 3.375mg IV - Sepsis without shock with unknown source at this time- DDX Urine vs. aspiration vs other - Lactae 2.3- following him being agitated requiring staff restraint and chemical restraint- recheck- 1.2 - Continue to search for other sources- abd/pelvis/head CT scans and cxr as above- no definitive source Patient had admission in with gram negative bacteremia with no clears source identified at that time - he remains with hernia, CT scan of abdomen without free air noted- and does not appear incarcerated on exam. (2) Encephalopathy: Plan: Metabolic vs. toxic vs. infective or combination of the above - presents with GAP and low Hco3 - VBG - Urine Tox screen negative - Resuscitate with IVF as above - Continue workup and abx - Haldol PRN if needed - restraints if needed - without seizure or focal neurological deficits, afebrile - TSH 2.75 - - HCO3 18 with gap of 16- possibly related to elevated lactate- tox screen pending- VBG- 7.38/38/58/22 (Base deficit -2.8) - await urine tox (3) Cognitive impairment: Plan: Moderate mental dissability - has caregivers with him all times - they can accompany him while admitted (4) Prediabetes: Plan: Not on any agents at home - glucose 150 - follow with dextrose checks- add coverage if > 180mg /DL (5) Fatty liver: Plan: No acute needs (6) Hyperlipidemia: Plan: - Continue pravastatin (7) Depression: Plan: He does not take his Quetiapine as he was more sleepy on this - continue sertraline History of Present Illness Primary Care Provider: Ronna Zendejas, DO 51 YOM with underlying moderate disability, fatty liver, hyperlipemia, vit d deficiency, depression. Patient resides at a home with care takers he has been there for 5 years. The patient is brought in today for concerns of decrease in food and water intake and change in behavior- becoming more agitated. In the EMD the patient had routine labs performed, ECG, CXR, CT scan of head without contrast and CT of abdomen w/o contrast. He also had blood an durine cultures performed. He was started on Zosyn. The patient also reportedly was combative in the EMD with attempting to hit staff and unable to be directed for care. He was ordered restraints (which are not on), and was given Haldol. He is accompanied by his caregiver. She states that he is normally up and functioning and completes his own tasks. She does not note him having any fevers or complaining of being ill prior to a few days ago. No abdominal pain and no diarrhea reported. He is tachycardic on arrival and with elevated lactate- recheck following volume as well as he is not currently combative. His CBC is with mild elevation in his NLR, urine appears infected, and BMP is noteable for HCO3 of 16 with Gap. Will send VBG and tox screen. His glucose is 150 and not on any agents. He is currently sedated and unable to participate in exam. COVID on admisison is: NEGATIVE Allergies Allergy/AdvReac Type Severity Reaction Status Date / Time atorvastatin Allergy Intermediate ITCHY ALL Verified 03/29/22 15:01 OVER Home Medications Medication Instructions Recorded Confirmed Type timolol maleate 0.5 % eye drops 1 drp OP BID ml 07/10/19 03/29/22 History sertraline 50 mg tablet (Zoloft) 50 mg PO DAILY #90 tab 10/26/21 03/29/22 Rx tamsulosin 0.4 mg capsule (Flomax) 0.4 mg PO DAILY #90 cap 10/26/21 03/29/22 Rx brimonidine 0.2 %-timolol 0.5 % 1 drp OPL BID 10/27/21 03/29/22 History eye drops (Combigan) pravastatin 20 mg tablet 20 mg PO HS #90 tab 01/21/22 03/29/22 Rx pravastatin 40 mg tablet 40 mg PO HS #90 tab 01/21/22 03/29/22 Rx betamethasone dipropionate 0.05 % 1 applic TOPICAL BID PRN #30 g 02/18/22 03/29/22 Rx topical ointment cholecalciferol (vitamin D3) 50 2,000 unit PO QAM #90 cap 02/18/22 03/29/22 Rx mcg (2,000 unit) capsule omega-3 fatty acids 1,000 mg 1,000 mg PO QAM #90 cap 02/18/22 03/29/22 Rx capsule Past Med/Surg History Medical History Cognitive impairment Constipation Depression Fatty liver Frequency of urination Glaucoma Hearing loss Hyperlipidemia Hypertension Lichen simplex chronicus Moderate mental subnormality Prediabetes Proteinuria Speech impediment Vitamin D deficiency Surgical History History of tooth extraction all but 4 teeth removed Hx of colonoscopy (~2018) Family History Father Prostate cancer Diabetes Hypertension Cancer Heart disease Mother Breast cancer Heart disease Brother Colorectal cancer Other No family history of adverse response to anesthesia Denies family history of Ovarian cancer Myocardial infarction Social History Smoking Status: Never smoker Second Hand Exposure: No; Hx Alcohol Use: No Hx Substance Use: No Preferred Language: Czech Communication Ability: Impaired Communication Ability Comment: non verbal Visual Impairment: Limited Hearing Ability: Normal Taxicab Driver Required: No Beliefs That Will Affect Care: None marital status: Single Current Living Situation: Other Current Living Situation Comment: has adult daycare coordinator current occupational status: employed 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 How many Children do You have: 0 Other Information That Helps Us Care for You: No Feels Safe at Home: Yes Safety Concerns: Feels Safe At This Time Childhood Exposure to Second-Hand Smoke: No caffeine: No during the past year weight has: remained stable Dental Care, Regularly: Yes Physical Activity Frequency: 1-2 Times per Week Seatbelt Use: always Sunscreen Use: Yes Assistive Devices: None Review of Systems Review of Systems: REVIEW OF SYSTEMS: Unable to perform secondary to sedation Physical Exam Physical Exam: PHYSICAL EXAM: General:sedated, grimaces and remains forceable closing eyes when trying to open them Head: Normocephalic, atraumatic ENT: NEHA pupils, mucous membranes dry Neuro: sedated, does withdrawl to pain in all extrmeities, no posturing, no seizing Chest: equal rise and fall of the chest, no accessory muscle use, no heaves or thrills, scattered rhonchi in bases Cardiac: Regular rate and rhythm, telemetry reviewed, skin warm dry, cap refill <3 seconds, peripheral pulses +2 no JVD, no murmur, no edema GI: de la rosa to gravity Extremities: Normal inspection, no peripheral edema or erythema, calfs nontender to palpation Psych: depression Skin: no rash or erythema Results & Data Results & Data ([facility]) Vital Signs (Past 12 Hours) Vital Signs Temp Pulse Pulse Resp BP BP Pulse Ox 03/29/22 13:30 110 H 105/68 97 03/29/22 13:15 104 H 34 H 91 03/29/22 13:00 98 H 24 121/76 94 03/29/22 12:45 98 H 26 H 95 03/29/22 12:30 96 H 31 H 142/73 H 89 L 03/29/22 12:26 132/86 03/29/22 11:45 116 H 29 H 84 L 03/29/22 11:42 94 H 21 139/76 93 03/29/22 11:30 108 H 26 H 96 03/29/22 11:29 120 H 22 97 03/29/22 11:27 109 H 24 142/69 H 94 03/29/22 11:24 150 H 24 96 03/29/22 09:07 36.4 C L 107 H 20 138/89 99 Laboratory Results Abnormal lab results 03/29/22 03/29/22 03/29/22 Range/Units 11:11 11:11 11:11 RBC 4.43 L (4.7-6.1) M/uL Hgb 12.6 L (14.0-18.0) g/dL Hct 38.0 L (42-52) % RDW Coeff of Varun 14.8 H (11.5-14.5) % Neut # (Auto) 7.08 H (1.4-6.5) K/uL [place] # (Auto) 0.67 H (0.11-0.59) K/uL Immature Gran # (Auto) 0.13 H (0.00-0.02) K/uL Carbon Dioxide 18 L (21-32) mmol/L Anion Gap 16 H (3-11) BUN/Creatinine Ratio 20.3 H (10-20) Glucose 150 H (70-99(Fasting)) mg/dl Lactate 4.5 H* (0.4-2.0) mmol/L Alkaline Phosphatase 107 H (34-104) U/L Urine Protein (Negative) Urine Ketones (Negative) Urine Blood (Negative) U Epithel Cells (Auto) (0-5) /lpf Urine Bacteria (Auto) (Negative) Urine Mucus (None Prsent) 03/29/22 Range/Units 11:24 RBC (4.7-6.1) M/uL Hgb (14.0-18.0) g/dL Hct (42-52) % RDW Coeff of Varun (11.5-14.5) % Neut # (Auto) (1.4-6.5) K/uL [place] # (Auto) (0.11-0.59) K/uL Immature Gran # (Auto) (0.00-0.02) K/uL Carbon Dioxide (21-32) mmol/L Anion Gap (3-11) BUN/Creatinine Ratio (10-20) Glucose (70-99(Fasting)) mg/dl Lactate (0.4-2.0) mmol/L Alkaline Phosphatase (34-104) U/L Urine Protein 3+ H (Negative) Urine Ketones Trace H (Negative) Urine Blood 3+ H (Negative) U Epithel Cells (Auto) >30 H (0-5) /lpf Urine Bacteria (Auto) 1+ H (Negative) Urine Mucus Present A (None Prsent) Diagnostic Findings Chest X-Ray 03/29/22 09:23 SINGLE VIEW CHEST CLINICAL HISTORY: Generalized weakness. FINDINGS: An AP, portable, supine chest radiograph is compared to study dated 10/28/2021. The examination is severely degraded by portable technique and patient rotation. The heart is enlarged. There is pulmonary vascular congestion. Airspace opacities likely represent pulmonary edema. No large pleural effusion or pneumothorax is seen. The skeletal structures appear osteopenic. The bony thorax is grossly intact. IMPRESSION: 1. Cardiomegaly with pulmonary vascular congestion. 2. Airspace opacities likely represent pulmonary edema. Correlate clinically for evidence of a superimposed infectious/inflammatory pneumonitis. Radiographic follow-up to resolution is recommended ACT 112: Negative or not required by law. Electronically signed by: Hawk Taveras M.D. 03/29/2022 11:[address] 03/29/22 09:23 CT SCAN OF THE BRAIN WITHOUT IV CONTRAST CLINICAL HISTORY: Change in mental status. COMPARISON STUDY: CT of the brain dated 10/27/2021. TECHNIQUE: Unenhanced axial CT scan of the brain is performed from the vertex to the skull base. A dose lowering technique was utilized adhering to the principles of ALARA. The examination is degraded by inability to properly position the patient within the CT gantry. FINDINGS: Brain parenchyma: There is age-advanced involutional change noting mild subcortical and periventricular microangiopathic disease. There is no hemorrhage, mass effect, or evidence of acute territorial ischemia by CT criteria. A chronic lacunar infarct is noted in the right periventricular white matter. Ramirez-white matter differentiation is preserved. No extra-axial fluid collection is seen. Ventricles, sulci, cisterns: Prominent secondary to involutional change. Intracranial vasculature: There is atherosclerotic calcification of the cavernous carotid and vertebral arteries. Calvarium: Unremarkable. Sinuses and mastoids: There is evidence of previous paranasal sinus surgery. The visualized paranasal sinuses are clear. The mastoid air cells are well pneumatized. Orbits: The bony orbits are grossly intact. IMPRESSION: There is no hemorrhage, mass effect, or evidence of acute territorial ischemia by CT criteria. ACT 112: Negative or not required by law. Electronically signed by: Hawk Taveras M.D. 03/29/2022 12:26 PM Abdomen/Pelvis CT 03/29/22 09:30 CT abd pelvis wo con CLINICAL HISTORY: poss obstruc, distended TECHNIQUE: Helical axial images of the abdomen and pelvis were obtained. Automated dose lowering techniques and/or adjustment according to patient size were utilized for this exam. This exam was performed without intravenous contrast. CT DOSE: 2198.72 mGy.cm COMPARISON: Comparison is made to CT abdomen pelvis 10/28/2021 FINDINGS: Lower chest: No acute abnormality Liver: Unremarkable. No focal lesions are seen. Gallbladder and biliary tree: No calcified gallstones. Normal caliber wall. No intra- or extrahepatic biliary ductal dilation. Pancreas: Unremarkable, no focal lesions. Spleen: Unremarkable. Adrenals: Unremarkable. Kidneys and ureters: Unremarkable. Bladder: De La Rosa catheter is seen. Reproductive organs: Unremarkable. Bowel: Unremarkable appearance of the bowel. The appendix is normal. Lymph nodes Retroperitoneal: Unremarkable. Mesenteric: Unremarkable. Pelvic: Unremarkable. Peritoneum: Normal. Vessels: Unremarkable. Abdominal wall: Right greater than left fat-containing inguinal hernias are noted. Bones: Degenerative changes in the visualized spine. IMPRESSION: No acute abnormalities, in particular no evidence of bowel obstruction. ACT 112: Negative or not required by law. Electronically signed by: Dong Parker M.D. 03/29/2022 12:30 PM Medications Administered Home Medications timolol maleate 0.5 % eye drops 1 drp OP BID ml 07/10/19 [History Confirmed 12/26/21] quetiapine 50 mg tablet 50 mg PO HS #90 tab 10/26/21 [Rx Confirmed 12/26/21] sertraline 50 mg tablet (Zoloft) 50 mg PO DAILY #90 tab 10/26/21 [Rx Confirmed 12/26/21] tamsulosin 0.4 mg capsule (Flomax) 0.4 mg PO DAILY #90 cap 10/26/21 [Rx Confirmed 12/26/21] brimonidine 0.2 %-timolol 0.5 % eye drops (Combigan) 1 drp OPL BID 10/27/21 [History Confirmed 12/26/21] docusate sodium 100 mg capsule (Colace) 100 mg PO BID #60 cap 01/18/22 [Rx] psyllium husk (with sugar) 3.4 gram/12 gram oral powder (Metamucil (with sugar)) 2 tbsp PO QAM #1368 g 01/18/22 [Rx] pravastatin 20 mg tablet 20 mg PO HS #90 tab 01/21/22 [Rx] pravastatin 40 mg tablet 40 mg PO HS #90 tab 01/21/22 [Rx] betamethasone dipropionate 0.05 % topical ointment 1 applic TOPICAL BID PRN #30 g 02/18/22 [Rx] cholecalciferol (vitamin D3) 50 mcg (2,000 unit) capsule 2,000 unit PO QAM #90 cap 02/18/22 [Rx] omega-3 fatty acids 1,000 mg capsule 1,000 mg PO QAM #90 cap 02/18/22 [Rx] Discontinued Medications Haloperidol Lactate (Haloperidol Lactate 5 Mg/Ml 1 Ml Vial) 10 mg IM NOW STA Stop: 03/29/22 09:37 Last Admin: 03/29/22 09:42 Dose: 10 mg Documented by: [id number] Sodium Chloride (Nss 1000ml) 1,000 mls @ 999 mls/hr IV .Q1H1M ONE Stop: 03/29/22 10:23 Last Infusion: 03/29/22 13:42 Dose: 0 mls/hr Documented by: [id number] Admin: 03/29/22 12:00 Dose: 999 mls/hr Documented by: [id number] Piperacillin Sod/Tazobactam Sod (Zosyn) 4.5 gm in 120 mls @ 240 mls/hr IV NOW ONE Stop: 03/29/22 12:21 Last Infusion: 03/29/22 13:42 Dose: 0 mls/hr Documented by: [id number] Admin: 03/29/22 13:02 Dose: 240 mls/hr Documented by: [id number] Sodium Chloride (Nss 1000ml) 1,000 mls @ 999 mls/hr IV .Q1H1M ONE Stop: 03/29/22 12:53 Last Admin: 03/29/22 12:03 Dose: Not Given Documented by: [id number] Lorazepam (Lorazepam 2 Mg/1 Ml Vial) 2 mg IM NOW STA; Protocol Stop: 03/29/22 10:04 Last Admin: 03/29/22 10:25 Dose: 2 mg Documented by: [id number] ECG Additional Comments: Normal sinus rhythm with sinus arrhythmia Normal ECG When compared with ECG of 28-OCT-2021 23:40, No significant change was found Code Status & VTE Plan Code Status CODE: FULL - caregiver answers yes- he was full code on previous admissions VTE: SCDS, Lovenox 40mg SubQ daily Supervising Physician Co-Signing Physician Notes I supervised DARÍO Breaux on this admission. I interviewed and examined the patient independently of him. The plan is as written in his note except for any following changes/exceptions: None 51yo M w/ hx of intellectual disability and prior cryptogenic bacteremia who presents with altered mental status. The patient was combative and was sedated in the ER and was obtunded during my interview. 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 Per his welder manufacture, he has just become lethargic and has had reduced PO intake over the last 2-3 days which is similar to his prior episode of bacteremia. Cultures, UA, and CXR in the ER do not reveal an immediate source of infection. No focal findings on exam today. No skin lesions. He appears mildly hypovolemic despite CXR with some evidence of pulmonary congestion. He was given gentle IV fluids in the ER and started on Zosyn while cultures brew. Otherwise will continue home meds. PG Care Time/CCT Total # of Minutes Spent Total Time Spent with Patient: Total time spent is greater than 50% in coordination of care (as documented) at patient's floor/unit and/or counseling patient: Coding Level of Care Code 25157 Initial Inpt Care Lvl 3 Diagnoses Sepsis A41.9 Cognitive impairment R41.89 Prediabetes R73.03 Fatty liver K76.0 Hyperlipidemia E78.5 Depression F32.9 Encephalopathy G93.40
[2022-03-29 14:08] LABS: Base Excess VBG -2.6 mEq/L; pH VBG 7.39 (7.36-7.41)
[2022-03-29 14:11] LABS: Amphetamines+Metham, Urine Neg (Neg); Barbiturates, Urine Neg (Neg); Benzodiazepine, Urine Neg (Neg); Cocaine, Urine Neg (Neg); MDMA (Ecstacy), Urine Neg (Neg); Methadone, Urine Neg (Neg); Opiate, Urine Neg (Neg); Phencyclidine, Urine Neg (Neg)
--- NOTE | 2022-03-29 14:38 | Electrocardiogram Report ---
Test Reason : Blood Pressure : / mmHG Vent. Rate : 098 BPM Atrial Rate : 098 BPM P-R Int : 134 ms QRS Dur : 090 ms QT Int : 362 ms P-R-T Axes : 063 033 041 degrees QTc Int : 462 ms Normal sinus rhythm with sinus arrhythmia Normal ECG When compared with ECG of 28-OCT-2021 23:40, No significant change was found Confirmed by Luis Lopez ([id number]) on 03/29/2022 2:38:14 PM Referred By: REFERRED SELF Confirmed By:Mohit Lopez
[2022-03-29] MEDS ORDERED: ACETAMINOPHEN 325 MG TAB PO PRN (17:28)
[2022-03-29] MEDS ORDERED: D5W AND LACTATED RINGERS 1,000 ML IV ONE (17:28)
[2022-03-29] MEDS ORDERED: POLYETHYLENE (MIRALAX) 17 GM PACK PO PRN (17:28)
[2022-03-29] MEDS ORDERED: HALOPERIDOL LACTATE 5 MG/ML 1 ML VIAL IV PRN (17:28)
[2022-03-29] MEDS: PIPERACILLIN/TAZOBACTAM 3.375 GM in DEXTROSE 5% 100 ML IV SCH (18:21)
[2022-03-29] MEDS ORDERED: HALOPERIDOL LACTATE 5 MG/ML 1 ML VIAL IM PRN (23:39)
[2022-03-30] MEDS: PIPERACILLIN/TAZOBACTAM 3.375 GM in DEXTROSE 5% 100 ML IV SCH ×3 (01:21→17:24)
[2022-03-30 07:21] LABS: Hematocrit (blood only) 36.6 % (42-52); Mean Corpuscular Hemoglobin 30.5 pg (25-34); Mean Corpuscular Hgb Conc 35.5 g/dL (32-36); Mean Corpuscular Volume 85.9 fL (80-100); Mean Platelet Volume 9.9 fL (7.4-10.4); Platelet Count 280 K/uL (130-400); RDW Coefficient of Variation 14.9 % (11.5-14.5); RDW Standard Deviation 46.7 fL (36.4-46.3); Red Blood Count 4.26 M/uL (4.7-6.1); White Blood Count 12.62 K/uL (4.8-10.8)
[2022-03-30 07:46] LABS: Basophils # (auto) 0.02 K/uL (0-0.2); Basophils % (auto) 0.2 %; Eosinophils # (auto) 0.01 K/uL (0-0.5); Eosinophils % (auto) 0.1 %; Immature Granulocytes # (auto) 0.06 K/uL (0.00-0.02); Immature Granulocytes % (auto) 0.5 %; Lymphocytes # (auto) 0.89 K/uL (1.2-3.4); Lymphocytes % (auto) 7.1 %; Monocytes % (auto) 5.5 %; Neutrophils # (auto) 10.94 K/uL (1.4-6.5); Neutrophils % (auto) 86.6 %
[2022-03-30 07:56] LABS: BUN Creatinine Ratio 11.9 (10-20); Calcium 8.9 mg/dl (8.5-10.1); Creatinine Clr Calc Pharmacy 126.5 ml/min; Est GFR (African American) 127.1 ml/min; Est GFR (Non-African American) 109.7 ml/min; Magnesium 1.9 mg/dl (1.7-2.4); Potassium 3.6 mmol/L (3.5-5.1)
[2022-03-30] MEDS: SERTRALINE HCL 50 MG TABLET PO SCH (09:37)
[2022-03-30] MEDS: TAMSULOSIN HCL 0.4 MG CAP PO SCH (09:37)
[2022-03-30] MEDS: ENOXAPARIN INJ 40 MG/0.4 ML SYR SQ SCH (13:59)
--- NOTE | 2022-03-30 15:48 | Hospitalist Progress Note ---
Date of Service March 30, 2022 Assessment & Plan (1) Sepsis: Plan: Patient presents with encephaloathy/agitation, tachycardic, tachypneic, elevated NLR - Blood cultures negative so far - UA with mucous ketones, blood protein, 1+ bacteria- culture pending - Zosyn 3.375mg IV - Sepsis without shock with unknown source at this time- DDX Urine vs. aspiration vs other - Lactae 2.3- following him being agitated requiring staff restraint and chemical restraint- recheck- 1.2 - Continue to search for other sources- abd/pelvis/head CT scans and cxr as above- no definitive source -Slight increase in WBC, will recheck tomorrow, hold off on adding another antibiotics Patient had admission in with gram negative bacteremia with no clears source identified at that time - he remains with hernia, CT scan of abdomen without free air noted- and does not appear incarcerated on exam. (2) Encephalopathy: Plan: Metabolic vs. toxic vs. infective or combination of the above - presents with GAP and low Hco3 - VBG - Urine Tox screen negative - Resuscitate with IVF as above - Continue workup and abx - Haldol PRN if needed - restraints if needed - without seizure or focal neurological deficits, afebrile - TSH 2.75 (3) Cognitive impairment: Plan: Moderate mental dissability - has caregivers with him all times - they can accompany him while admitted (4) Prediabetes: Plan: Not on any agents at home - glucose 150 - follow with dextrose checks- add coverage if > 180mg /DL (5) Fatty liver: Plan: No acute needs (6) Hyperlipidemia: Plan: - Continue pravastatin (7) Depression: Plan: He does not take his Quetiapine as he was more sleepy on this - continue sertraline Plan: lijkely d/c in the next 24 to 48 hrs Admission and Anticipated Discharge Date Admission Date: March 29, 2022 Subjective patient seen and examined, sister and career development facilitator by the bedside, patient is essentially non verbal Review of Systems Review of Systems: unable to obtain, patient non verbal Physical Exam Physical Exam: The patient is awake, alert non verbal HEENT--PERRL, EOMI, mucous membranes and oropharynx mildly dry Neck--supple. No JVD. No bruits. Thyroid normal, trachea midline, no adenopathy. Heart--normal S1 and S2. No murmurs, rubs or gallops. Lungs--clear bilaterally, no respiratory distress, no accessory muscle use. Abdomen--normal bowel sounds and soft. Mild epigastric and left sided abdominal pain Extremities--no cyanosis or clubbing. No edema. Dermatologic--normal skin turgor, normal color, no abnormal lymph nodes, no rash. Neurologic--cranial nerves II through XII grossly intact. Rheumatologic--normal range of motion. Psychiatric--normal affect. Results & Data Results & Data ([facility]) Vital Signs (Past 12 Hours) Vital Signs Temp Pulse Pulse Resp BP Pulse Ox 03/30/22 15:00 103 H 03/30/22 13:00 97.9 F 72 22 152/90 H 98 03/30/22 08:00 89 03/30/22 04:07 97.9 F 113 H 20 136/77 94 Laboratory Results Laboratory Results - last 24 hr 03/30/22 03/30/22 06:52 06:52 WBC 12.62 H RBC 4.26 L Hgb 13.0 L Hct 36.6 L MCV 85.9 MCH 30.5 MCHC 35.5 RDW Std Deviation 46.7 H RDW Coeff of Varun 14.9 H Plt Count 280 MPV 9.9 Immature Gran % (Auto) 0.5 Neut % (Auto) 86.6 Lymph % (Auto) 7.1 [place] % (Auto) 5.5 Eos % (Auto) 0.1 Baso % (Auto) 0.2 Neut # (Auto) 10.94 H Lymph # (Auto) 0.89 L [place] # (Auto) 0.70 H Eos # (Auto) 0.01 Baso # (Auto) 0.02 Immature Gran # (Auto) 0.06 H Sodium 133 L Potassium 3.6 Chloride 100 Carbon Dioxide 21 Anion Gap 12 H BUN 8 Creatinine 0.67 Est Cr Clr Drug Dosing 126.5 Est GFR ( Amer) 127.1 Est GFR (Non-Af Amer) 109.7 BUN/Creatinine Ratio 11.9 Glucose 128 H Calcium 8.9 Magnesium 1.9 PG Care Time/CCT Total # of Minutes Spent Total Time Spent with Patient: Total time spent is greater than 50% in coordination of care (as documented) at patient's floor/unit and/or counseling patient: Coding Level of Care Code 14635 Subseq Hosp Care Lvl 2 Diagnoses Sepsis A41.9 Encephalopathy G93.40 Cognitive impairment R41.89 Prediabetes R73.03 Fatty liver K76.0 Hyperlipidemia E78.5 Depression F32.9 Time Spent (min) 35
[2022-03-31] MEDS: PIPERACILLIN/TAZOBACTAM 3.375 GM in DEXTROSE 5% 100 ML IV SCH ×3 (01:13→18:20)
[2022-03-31 07:25] LABS: Basophils # (auto) 0.01 K/uL (0-0.2); Basophils % (auto) 0.1 %; Hematocrit (blood only) 37.3 % (42-52); Hemoglobin 12.4 g/dL (14.0-18.0); Immature Granulocytes # (auto) 0.05 K/uL (0.00-0.02); Immature Granulocytes % (auto) 0.4 %; Lymphocytes # (auto) 0.67 K/uL (1.2-3.4); Lymphocytes % (auto) 5.7 %; Mean Corpuscular Hemoglobin 28.2 pg (25-34); Mean Corpuscular Hgb Conc 33.2 g/dL (32-36); Mean Platelet Volume 9.9 fL (7.4-10.4); Monocytes # (auto) 0.87 K/uL (0.11-0.59); Monocytes % (auto) 7.4 %; Neutrophils % (auto) 86.4 %; Platelet Count 309 K/uL (130-400); RDW Coefficient of Variation 15.1 % (11.5-14.5); RDW Standard Deviation 46.7 fL (36.4-46.3); Red Blood Count 4.39 M/uL (4.7-6.1)
[2022-03-31 07:52] LABS: BUN Creatinine Ratio 20.6 (10-20); Creatinine Clr Calc Pharmacy 135.1 ml/min; Est GFR (African American) 130.4 ml/min; Est GFR (Non-African American) 112.5 ml/min; Magnesium 2.1 mg/dl (1.7-2.4); Potassium 3.6 mmol/L (3.5-5.1)
[2022-03-31] MEDS: SERTRALINE HCL 50 MG TABLET PO SCH (09:56)
[2022-03-31] MEDS: TAMSULOSIN HCL 0.4 MG CAP PO SCH (09:56)
[2022-03-31] MEDS: SODIUM CHLORIDE 0.9% 1000ML 1,000 ML IV SCH (12:32)
--- NOTE | 2022-03-31 13:11 | Hospitalist Progress Note ---
Date of Service March 31, 2022 Assessment & Plan (1) Sepsis: Plan: Patient presents with encephaloathy/agitation, tachycardic, tachypneic, elevated NLR - Blood cultures negative so far - UA with mucous ketones, blood protein, 1+ bacteria- culture pending - Zosyn 3.375mg IV - Sepsis without shock with unknown source at this time- DDX Urine vs. aspiration vs other - Lactate, initially elevated, now wnl - patient has been afebrile Patient had admission in with gram negative bacteremia with no clears source identified at that time - he remains with hernia, CT scan of abdomen without free air noted- and does not appear incarcerated on exam. (2) Encephalopathy: Plan: Metabolic vs. toxic vs. infective or combination of the above Patient back to baseline - presents with GAP and low Hco3 - VBG - Urine Tox screen negative - Resuscitate with IVF as above - Continue workup and abx - Haldol PRN if needed - restraints if needed - without seizure or focal neurological deficits, afebrile - TSH 2.75 (3) Cognitive impairment: Plan: Moderate mental dissability - has caregivers with him all times - they can accompany him while admitted (4) Prediabetes: Plan: Not on any agents at home - glucose 150 - follow with dextrose checks- add coverage if > 180mg /DL (5) Fatty liver: Plan: No acute needs (6) Hyperlipidemia: Plan: - Continue pravastatin (7) Depression: Plan: He does not take his Quetiapine as he was more sleepy on this - continue sertraline Plan: lakshmiely d/c in the next 24 to 48 hrs Admission and Anticipated Discharge Date Admission Date: March 29, 2022 Subjective patient seen and examined, sister and caregiver assisted living by the bedside, patient was more interactive today Review of Systems Review of Systems: difficult to understand him, he is somewhat verbal though Physical Exam Physical Exam: The patient is awake, alert non verbal HEENT--PERRL, EOMI, mucous membranes and oropharynx mildly dry Neck--supple. No JVD. No bruits. Thyroid normal, trachea midline, no adenopathy. Heart--normal S1 and S2. No murmurs, rubs or gallops. Lungs--clear bilaterally, no respiratory distress, no accessory muscle use. Abdomen--normal bowel sounds and soft. Mild epigastric and left sided abdominal pain Extremities--no cyanosis or clubbing. No edema. Dermatologic--normal skin turgor, normal color, no abnormal lymph nodes, no rash. Neurologic--cranial nerves II through XII grossly intact. Rheumatologic--normal range of motion. Psychiatric--normal affect. Results & Data Results & Data ([facility]) Vital Signs (Past 12 Hours) Vital Signs Temp Pulse Pulse Resp BP Pulse Ox 03/31/22 11:53 97.5 F L 110 H 20 106/74 97 03/31/22 08:00 96 H 03/31/22 06:53 97.9 F 107 H 24 124/71 97 03/31/22 04:27 97.7 F 108 H 20 130/89 96 PG Care Time/CCT Total # of Minutes Spent Total Time Spent with Patient: Total time spent is greater than 50% in coordination of care (as documented) at patient's floor/unit and/or counseling patient: Coding Level of Care Code 89874 Subseq Hosp Care Lvl 2 Diagnoses Sepsis A41.9 Encephalopathy G93.40 Cognitive impairment R41.89 Prediabetes R73.03 Fatty liver K76.0 Hyperlipidemia E78.5 Depression F32.9 Time Spent (min) 35
[2022-03-31] MEDS: ENOXAPARIN INJ 40 MG/0.4 ML SYR SQ SCH (15:32)
[2022-04-01] MEDS: PIPERACILLIN/TAZOBACTAM 3.375 GM in DEXTROSE 5% 100 ML IV SCH ×2 (01:06→08:59)
[2022-04-01] MEDS: SODIUM CHLORIDE 0.9% 1000ML 1,000 ML IV SCH (01:43)
[2022-04-01 06:40] LABS: Hematocrit (blood only) 37.6 % (42-52); Hemoglobin 12.8 g/dL (14.0-18.0); Mean Corpuscular Hemoglobin 29.4 pg (25-34); Mean Corpuscular Volume 86.4 fL (80-100); Nucleated RBC # (auto) 0.02 K/uL (0-0); Nucleated RBC % (auto) 0.2 %; Platelet Count 288 K/uL (130-400); RDW Coefficient of Variation 14.8 % (11.5-14.5); RDW Standard Deviation 47.2 fL (36.4-46.3); Red Blood Count 4.35 M/uL (4.7-6.1); White Blood Count 10.51 K/uL (4.8-10.8)
[2022-04-01 06:56] LABS: Basophils # (auto) 0.02 K/uL (0-0.2); Basophils % (auto) 0.2 %; Eosinophils # (auto) 0.01 K/uL (0-0.5); Eosinophils % (auto) 0.1 %; Immature Granulocytes # (auto) 0.09 K/uL (0.00-0.02); Immature Granulocytes % (auto) 0.9 %; Lymphocytes # (auto) 0.88 K/uL (1.2-3.4); Lymphocytes % (auto) 8.4 %; Monocytes # (auto) 0.99 K/uL (0.11-0.59); Monocytes % (auto) 9.4 %; Neutrophils # (auto) 8.52 K/uL (1.4-6.5); Polychromasia 1+
[2022-04-01 06:57] LABS: Calcium 8.3 mg/dl (8.5-10.1); Creatinine Clr Calc Pharmacy 135.1 ml/min; Est GFR (African American) 130.4 ml/min; Est GFR (Non-African American) 112.5 ml/min; Potassium 3.6 mmol/L (3.5-5.1)
[2022-04-01] MEDS: TAMSULOSIN HCL 0.4 MG CAP PO SCH (08:59)
[2022-04-01] MEDS: SERTRALINE HCL 50 MG TABLET PO SCH (08:59)
--- NOTE | 2022-04-01 12:53 | Discharge Summary ---
Date of Service April 01, 2022 Admission HPI Per Admitting Provider 51 YOM with underlying moderate disability, fatty liver, hyperlipemia, vit d deficiency, depression. Patient resides at a home with care takers he has been there for 5 years. The patient is brought in today for concerns of decrease in food and water intake and change in behavior- becoming more agitated. In the EMD the patient had routine labs performed, ECG, CXR, CT scan of head without contrast and CT of abdomen w/o contrast. He also had blood an durine cultures performed. He was started on Zosyn. The patient also reportedly was combative in the EMD with attempting to hit staff and unable to be directed for care. He was ordered restraints (which are not on), and was given Haldol. He is accompanied by his caregiver. She states that he is normally up and functioning and completes his own tasks. She does not note him having any fevers or complaining of being ill prior to a few days ago. No abdominal pain and no diarrhea reported. He is tachycardic on arrival and with elevated lactate- recheck following volume as well as he is not currently combative. His CBC is with mild elevation in his NLR, urine appears infected, and BMP is noteable for HCO3 of 16 with Gap. Will send VBG and tox screen. His glucose is 150 and not on any agents. He is currently sedated and unable to participate in exam. COVID on admisison is: NEGATIVE Principal Diagnosis sepsis, source unknown Discharge Exam The patient is awake, alert non verbal HEENT--PERRL, EOMI, mucous membranes and oropharynx mildly dry Neck--supple. No JVD. No bruits. Thyroid normal, trachea midline, no adenopathy. Heart--normal S1 and S2. No murmurs, rubs or gallops. Lungs--clear bilaterally, no respiratory distress, no accessory muscle use. Abdomen--normal bowel sounds and soft. Mild epigastric and left sided abdominal pain Extremities--no cyanosis or clubbing. No edema. Dermatologic--normal skin turgor, normal color, no abnormal lymph nodes, no rash. Neurologic--cranial nerves II through XII grossly intact. Rheumatologic--normal range of motion. Psychiatric--normal affect. Discharge Data Allergies Allergy/AdvReac Type Severity Reaction Status Date / Time atorvastatin Allergy Intermediate ITCHY ALL Verified 03/29/22 15:01 OVER Consultations 03/29/22 13:05 ED Decision to Admit Stat Ordered Studies 03/29/22 09:23 CT head/brain wo con Stat 03/29/22 09:30 CT abd pelvis wo con Stat Hospital Course (1) Sepsis: Patient presents with encephaloathy/agitation, tachycardic, tachypneic, elevated NLR - Blood cultures negative so far - UA with mucous ketones, blood protein, 1+ bacteria- culture pending - Zosyn 3.375mg IV , will discharge on Oral Augmentin for 7 days - Sepsis without shock with unknown source at this time- DDX Urine vs. aspiration vs other - Lactate, initially elevated, now wnl - patient has been afebrile Patient had admission in with gram negative bacteremia with no clears source identified at that time - he remains with hernia, CT scan of abdomen without free air noted- and does not appear incarcerated on exam. (2) Encephalopathy: Metabolic vs. toxic vs. infective or combination of the above Patient back to baseline - presents with GAP and low Hco3 - VBG - Urine Tox screen negative - Resuscitate with IVF as above - Continue workup and abx - Haldol PRN if needed - restraints if needed - without seizure or focal neurological deficits, afebrile - TSH 2.75 (3) Cognitive impairment: Moderate mental dissability - has caregivers with him all times - they can accompany him while admitted (4) Prediabetes: Not on any agents at home - glucose 150 - follow with dextrose checks- add coverage if > 180mg /DL (5) Fatty liver: No acute needs (6) Hyperlipidemia: - Continue pravastatin (7) Depression: He does not take his Quetiapine as he was more sleepy on this - continue sertraline lijkely d/c in the next 24 to 48 hrs Total Time Total Time Spent Total Time Spent (In Minutes): 35 Discharge Plan Discharge Items Patient Disposition: Home - Self-Care Reason For Visit: CRYPTOGENIC SHOCK, SEPSIS UTI Discharge Diagnosis: sepsis- source unknown Condition on Discharge: Fair Activity: Resume your previous activity Non-emergency contact: Primary Care Provider Call non-emergency contact if: you have any medication questions Follow-up/Referrals: Ronna Zendejas DO [Primary Care Provider] - 04/16/22 9:20 am (Please follow up with Dr. Zendejas on Friday04/16/22 at 9:20 am. Please arrive to the office at 9:05 am for your appointment. If you are unable to keep this appointment, please call the office to reschedule at [phone].) Diet: Regular Addtl Attending Provider Instructions: please make appointment to see your regular PCP Pending Studies at Discharge: No Stand-Alone Forms: [facility], Smoking Cessation Medications and DC Order Prescriptions: New amoxicillin-pot clavulanate [Augmentin] 500-125 mg tablet 1 tab PO BID 7 Days Qty: 14 RF: 0 Continued sertraline [Zoloft] 50 mg tablet 50 mg PO DAILY Qty: 90 RF: 1 tamsulosin [Flomax] 0.4 mg capsule 0.4 mg PO DAILY Qty: 90 RF: 1 pravastatin 40 mg tablet 40 mg PO HS Qty: 90 RF: 1 pravastatin 20 mg tablet 20 mg PO HS Qty: 90 RF: 1 cholecalciferol (vitamin D3) 50 mcg (2,000 unit) capsule 2,000 unit PO QAM Qty: 90 RF: 1 omega-3 fatty acids 1,000 mg capsule 1,000 mg PO QAM Qty: 90 RF: 1 betamethasone dipropionate 0.05 % ointment 1 applic topical BID PRN (Reason: skin irritation) Qty: 30 RF: 1 timolol maleate 0.5 % drops 1 drp OP BID RF: 0 brimonidine-timolol [Combigan] 0.2-0.5 % drops 1 drp OPL BID RF: 0 Discharge Orders: Discharge Order (Routine); Ordered 04/01/22 Ordered By: Abel Sullivan Admission Data Admit Date/Time: 03/29/22 13:59 Attending Provider: Abel Sullivan Admit Provider: Florin Rinaldi Primary Care Provider: Ronna Zendejas Other Providers: Florin Rinaldi Other Interventions: Discharge Summary Assessment (RN) Last Done: 04/01/22 11:40 Coding Level of Care Code D/C DAY MANAGEMENT >30 MINS Diagnoses Sepsis A41.9 Encephalopathy G93.40 Cognitive impairment R41.89 Prediabetes R73.03 Fatty liver K76.0 Hyperlipidemia E78.5 Depression F32.9 Time Spent (min) 35
== END 2022-04-01 13:12 | disposition home or self-care (01) | DRG 871 ==
LOC: ED 09:05 → 2E 13:59 → SUATTDRO 13:59 → 2E 16:29